=== PATIENT | male | born 1975 | race Caucasian/White ===

== ENCOUNTER 2019-08-04 10:23 | Emergency (ER) | payer OTHER ==
[2019-08-04] MEDS ORDERED: TORAdol 30 mg Injection IV ONE (11:10)
[2019-08-04] MEDS ORDERED: Sodium Chloride 0.9% 1000 ML 1,000 ML IV STA (11:10)
[2019-08-04] MEDS ORDERED: Sodium Chloride 0.9% 1000 ML 1,000 ML ONE (11:18)
[2019-08-04] MEDS ORDERED: TORAdol 30 mg Injection ONE (11:18)
--- NOTE | 2019-08-04 11:34 | ERPHSYRPT ---
- History of Present Illness Time Seen by Provider: 08/04/19 10:49 Historian: patient Exam Limitations: no limitations Patient Subjective Stated Complaint: Pt states that in May he hurt himself feeling something "tear or pop" in his left lower abdomen down to his testicles while moving furniture, pt went to a quick clinic and was told that it was a hernia and then had an MRI that did not see it, pain and bulging came again later and went back to the doc and was told it was a sports hernia and had an ultrasound and they did not see it, pt is now having bulging and pain again and has come to get some answers and relief, pt has a histury of an inguanal hernia on the left side when he was in high school Triage Nursing Assessment: Pt walked into the ER, vitals wnl, tender to palpatation to the LLQ, unable to feel any bulging, pulses normal, rates the pain as 6/10, last BM yesterday and last intake approx 1 hour ago, denies and N& V, doesn't appear to be in any distress Physician History: 44 years old male with history of left inguinal hernia repair long time ago presented in the ER with 3 months history of off and on left-sided abdominal pain after lifting heavy stuff and felt a popping sensation. He was seen at outpatient and had MRI and ultrasound done which are negative. Patient report he feels a bulge initially in the lower abdomen but now he is having pain and bulging sensation in the upper abdomen as well. Moderate intensity sharp in nature without any significant aggravating or relieving factors deviating to left testicle at times no difficulty urination or testicular/scrotal swelling. Patient is worried about getting abdominal wall hernias and wants an answer for his symptoms. Timing/Duration: week(s), intermittent, worse Activities at Onset: rest Quality: sharpness Abdominal Pain Onset Location: LUQ, LLQ, flank Severity of Pain-Max: moderate Severity of Pain-Current: moderate Modifying Factors: Improves With: nothing Associated Symptoms: denies symptoms Previous symptoms: no prior history Allergies/Adverse Reactions: codeine Allergy (Verified 08/04/19 10:48) cortisone [Cortisone] Allergy (Verified 08/04/19 10:48) Home Medications: Insulin Aspart [Novolog] 5 unit SQ TIDWM 08/04/19 [History] Insulin Glargine,Hum.rec.anlog [Rayne Shearer U-100] 30 unit SQ HS 08/04/19 [ History] Hx Tetanus, Diphtheria Vaccination/Date Given: Yes Hx Influenza Vaccination/Date Given: No Hx Pneumococcal Vaccination/Date Given: No Travel Risk - International Travel Have you traveled outside of the country in past 3 weeks: No - Coronavirus Screening Are you exhibiting any of the following symptoms?: No Close contact with a COVID-19 positive Pt in past 14-21 Days: No - Review of Systems Constitutional: No Symptoms Eyes: No Symptoms Ears, Nose, & Throat: No Symptoms Respiratory: No Symptoms Cardiac: No Symptoms Abdominal/Gastrointestinal: Abdominal Pain Genitourinary Symptoms: Testicle Pain Musculoskeletal: No Symptoms Skin: No Symptoms Neurological: No Symptoms Psychological: No Symptoms Endocrine: No Symptoms Hematologic/Lymphatic: No Symptoms Immunological/Allergic: No Symptoms - Past Medical History Pertinent Past Medical History: Yes Endocrine Medical History: Diabetes Type II GI Medical History: Hernia - Past Surgical History Past Surgical History: Yes Gastrointestinal: Hernia Repair Musculoskeletal: Orthopedic Surgery Other Surgical History: TONSILS REMOVED, back surgery L4-5 - Social History Smoking Status: Never smoker Exposure to second hand smoke: No Drug Use: none Patient Lives Alone: No - Nursing Vital Signs Nursing Vital Signs: Initial Vital Signs Temperature 98.1 F 08/04/19 10:36 Pulse Rate 96 H 08/04/19 10:36 Blood Pressure 132/81 08/04/19 10:36 O2 Sat by Pulse Oximetry 97 08/04/19 10:36 Pain Scale Pain Intensity 4 - Physical Exam General Appearance: no apparent distress, alert, anxiety Eye Exam: eyes nml inspection Ears, Nose, Throat Exam: normal ENT inspection, pharynx normal Neck Exam: normal inspection, supple, full range of motion Respiratory Exam: normal breath sounds, lungs clear Cardiovascular Exam: regular rate/rhythm, normal heart sounds, normal peripheral pulses Gastrointestinal/Abdomen Exam: soft, tenderness (Upper/flank/lower quadrant tenderness. No asymmetry of abdomen. No guarding. No pulsatile or palpable mass.) Male Genitalia Exam: normal genitalia Back Exam: normal inspection Extremity Exam: normal inspection Neurologic Exam: alert, oriented x 3, cooperative Skin Exam: normal color SpO2 Interpretation: normal SpO2: 97 O2 Delivery: Room Air Ordered Tests: Active Orders 24 hr Category Date Time Status IV Insertion STAT Care 08/04/19 11:10 Active NPO (ED) STAT Care 08/04/19 11:10 Active ABDOMEN AND PELVIS W CONTRAST [CT] Stat Exams 08/04/19 11:11 Completed CBC W DIFF Stat Lab 08/04/19 11:10 Completed CMP Stat Lab 08/04/19 11:10 Completed LIPASE Stat Lab 08/04/19 11:10 Completed UA W/RFX UR CULTURE Stat Lab 08/04/19 11:35 Completed Medication Summary Discontinued Medications Generic Name Dose Route Start Last Admin Trade Name Freq PRN Reason Stop Dose Admin Sodium Chloride 1,000 mls @ 999 mls/hr 08/04/19 11:10 08/04/19 12:30 Sodium Chloride 0.9% 1000 Ml IV 08/04/19 12:10 Infused .Q1H1M STA Infusion Sodium Chloride Confirm 08/04/19 11:18 Sodium Chloride 0.9% 1000 Ml Administered 08/04/19 11:19 Dose 1,000 mls @ ud .ROUTE .STK-MED ONE Ketorolac Tromethamine 30 mg 08/04/19 11:10 08/04/19 11:20 Toradol 30 Mg Injection IV 08/04/19 11:11 30 mg STAT ONE Administration Ketorolac Tromethamine Confirm 08/04/19 11:18 Toradol 30 Mg Injection Administered 08/04/19 11:19 Dose 30 mg .ROUTE .STK-MED ONE Lab/Rad Data: Laboratory Result Diagrams 08/04/19 11:10 08/04/19 11:10 Laboratory Results 08/04/19 08/04/19 08/04/19 Range/Units 11:35 11:10 11:10 WBC 5.5 (4.0-10.5) K/mm3 RBC 4.94 (4.1-5.6) M/mm3 Hgb 15.7 (12.5-18.0) gm/dl Hct 44.0 (42-50) % MCV 89.1 (78-100) fl MCH 31.8 (26-32) pg MCHC 35.7 (32-36) g/dl RDW 12.4 (11.5-14.0) % Plt Count 220 (150-450) K/mm3 MPV 11.1 H (7.5-11.0) fl Gran % 68.9 H (36.0-66.0) % Eos # (Auto) 0.04 (0-0.5) Absolute Lymphs (auto) 1.24 (1.0-4.6) Absolute Monos (auto) 0.39 (0.0-1.3) Lymphocytes % 22.6 L (24.0-44.0) % Monocytes % 7.1 (0.0-12.0) % Eosinophils % 0.7 (0.00-5.0) % Basophils % 0.7 (0.0-0.4) % Absolute Granulocytes 3.78 (1.4-6.9) Basophils # 0.04 (0-0.4) Sodium 138 (137-145) mmol/L Potassium 3.8 (3.5-5.1) mmol/L Chloride 101 (98-107) mmol/L Carbon Dioxide 25 (22-30) mmol/L Anion Gap 15.5 H (5-15) MEQ/L BUN 18 (9-20) mg/dL Creatinine 0.69 (0.66-1.25) mg/dL Estimated GFR > 60.0 ML/MIN Glucose 358 H (74-106) mg/dL Calcium 9.1 (8.4-10.2) mg/dL Total Bilirubin 0.60 (0.2-1.3) mg/dL AST 21 (17-59) U/L ALT 21 (0-50) U/L Alkaline Phosphatase 138 H (38-126) U/L Serum Total Protein 7.6 (6.3-8.2) g/dL Albumin 4.2 (3.5-5.0) g/dL Lipase 604 H (23-300) U/L Urine Color YELLOW (YELLOW) Urine Appearance CLEAR (CLEAR) Urine pH 5.0 (5-6) Ur Specific [place] 1.032 (1.005-1.025) Urine Protein NEGATIVE (Negative) Urine Ketones SMALL (NEGATIVE) Urine Blood NEGATIVE (0-5) Daniel/ul Urine Nitrite NEGATIVE (NEGATIVE) Urine Bilirubin NEGATIVE (NEGATIVE) Urine Urobilinogen NEGATIVE (0-1) mg/dL Ur Leukocyte Esterase NEGATIVE (NEGATIVE) Urine WBC (Auto) NONE (0-5) /HPF Urine RBC (Auto) NONE (0-2) /HPF U Epithel Cells (Auto) NONE (FEW) /HPF Urine Bacteria (Auto) NONE (NEGATIVE) /HPF Urine Mucus (Auto) SLIGHT (NEGATIVE) /HPF Urine Culture Reflexed NO (NO) Urine Glucose >=500 (NEGATIVE) mg/dL - Progress Progress: improved, re-examined Progress Note: 08/04/19 13:54 44 years old is evaluated for left-sided abdominal pain off and on for quite some time. Is given Toradol, on reevaluation pain is better. Patient is not in any distress. He has normal white count. Lipase and 600 but no signs of acute pancreatitis on the CT abdomen pelvis with contrast. CT otherwise is negative for any acute findings. I do not know the exact cause of his pain but have ruled out all the major emergencies. Recommended outpatient follow-up with primary care and may need endoscopy/colonoscopy. Because of her elevated lipase I have recommended clear liquids for next 24 to 48 hours. Discussed signs symptoms of worsening needing return to ER which she seemed understanding. Stable for discharge. Counseled pt/family regarding: lab results, diagnosis, need for follow-up, rad results - Departure Departure Disposition: Home Clinical Impression: Left sided abdominal pain, Elevated lipase Condition: Stable Critical Care Time: No Referrals: DOCTOR,NO FAMILY [Primary Care Provider] - MILAGROS MAURER MD [ACTIVE STAFF] - (1-2 days for re evaluation) Instructions: Acute Abdomen (Belly Pain) Additional Instructions: Take clear liquids for next 24 to 48 hours. Take Tylenol as needed. Follow-up with primary care for reevaluation. Return to ER for worsening.
[2019-08-04 11:46] LABS: Appearance CLEAR (CLEAR); Bilirubin NEGATIVE (NEGATIVE); Blood NEGATIVE Ery/ul (0-5); Glucose >=500 mg/dL (NEGATIVE); Ketones SMALL (NEGATIVE); Leukocyte Esterase NEGATIVE (NEGATIVE); Mucus SLIGHT /HPF (NEGATIVE); Nitrite NEGATIVE (NEGATIVE); Protein,Urine Dip NEGATIVE (Negative); Specific Gravity 1.032 (1.005-1.025); Urobilinogen NEGATIVE mg/dL (0-1)
[2019-08-04 11:57] LABS: Absolute Neutrophil Ct (ANC) 3.78 (1.4-6.9); BASOPHIL % 0.7 % (0.0-0.4); Basophil (Absolute #) 0.04 (0-0.4); Eosinophil % 0.7 % (0.00-5.0); Eosinophil (Absolute #) 0.04 (0-0.5); Hemoglobin 15.7 gm/dl (12.5-18.0); Lymphocyte (Absolute #) 1.24 (1.0-4.6); Lymphocytes % 22.6 % (24.0-44.0); Mean Cell Volume 89.1 fl (78-100); Mean Corpuscular Hemoglobin 31.8 pg (26-32); Mean Corpuscular Hgb Concent. 35.7 g/dl (32-36); Mean Platelet Volume 11.1 fl (7.5-11.0); Monocyte (Absolute #) 0.39 (0.0-1.3); Monocytes % 7.1 % (0.0-12.0); Neutrophil % 68.9 % (36.0-66.0); Platelet Count 220 K/mm3 (150-450); Red Blood Count 4.94 M/mm3 (4.1-5.6); Red Cell Distribution Width 12.4 % (11.5-14.0); White Blood Count 5.5 K/mm3 (4.0-10.5)
[2019-08-04 12:06] LABS: ALBUMIN 4.2 g/dL (3.5-5.0); ALKALINE PHOSPHATASE 138 U/L (38-126); ANION GAP 15.5 MEQ/L (5-15); BLOOD UREA NITROGEN 18 mg/dL (9-20); CHLORIDE 101 mmol/L (98-107); Calcium 9.1 mg/dL (8.4-10.2); Carbon Dioxide 25 mmol/L (22-30); Creatinine 1 0.69 mg/dL (0.66-1.25); Glucose 358 mg/dL (74-106); Potassium 3.8 mmol/L (3.5-5.1); SGOT/AST 21 U/L (17-59); SGPT/ALT 21 U/L (0-50); SODIUM 138 mmol/L (137-145); Total Protein 7.6 g/dL (6.3-8.2)
[2019-08-04 12:07] LABS: LIPASE 604 U/L (23-300)
--- NOTE | 2019-08-04 13:06 | XRAY ---
Exam: CT of the abdomen and pelvis with IV contrast from 08/04/2019. Total DLP: 539.20 mGy-cm Comparison: None. Indication: 44-year-old male complains of left-sided pain, rule out hernia. Also, information sheet states "left testicle swelling". Technique: Post IV contrast axial images were obtained through the abdomen and pelvis during automated injection of 80 ML's of Isovue 370 contrast material. No oral contrast was given. Reconstructed coronal and sagittal images were created and reviewed. Findings: The lung bases appear clear. The heart size is normal. The liver and spleen are of normal size and reveal no mass. No intrahepatic or extrahepatic biliary duct distention is seen within the right upper quadrant. The gallbladder is partially distended, and no dense calcifications are seen within it. The pancreas and adrenal glands appear unremarkable. The right kidney is relatively small and reveals asymmetric cortical thickening and scarring as well as a punctate nonobstructing stone within its lower pole. The left kidney measures 13.1 cm in length, whereas the right kidney measures about 8.4 cm in length. The kidneys both function on delay images. The ureters appear of unremarkable diameter without ureterolith. The urinary bladder is distended and appears unremarkable. There is no evidence of abdominal aortic aneurysm or abnormal retroperitoneal lymphadenopathy. No free intraperitoneal air is seen. The anterior abdominal wall appears intact. The appendix is seen within the right lower quadrant and appears unremarkable. A mild amount of scattered stool is seen throughout the colon. Mild muscular hypertrophy is seen within the sigmoid colon. No significant colonic diverticulosis or acute diverticulitis is seen. No bowel thickening is evident. The pelvis reveals no soft tissue mass or enlarged pelvic lymph nodes. No free intraperitoneal fluid is seen. The seminal vesicles appear unremarkable. Minimal prostate gland calcification is seen. The region of the inguinal canals appears unremarkable bilaterally. I see no significant asymmetry within either hemiscrotum on the axial or coronal images. Correlate clinically regarding reported "left testicle swelling". The skeleton reveals a transitional vertebra at the lumbosacral junction. Some vertebral endplate spurring is seen within the lower thoracic spine, and to lesser extent, within the mid and lower lumbar spine. No fracture or aggressive bone lesion is seen. Impression: 1. I see no acute intra-abdominal or pelvic process. 2. Incidentally, the right kidney is atrophic and reveals both cortical thinning and cortical scarring as well as a small nonobstructing stone within its inferior pole. Presumably, these findings are long-standing. I see no evidence of acute obstructive uropathy. 3. Normal appendix. 4. No significant abnormalities are detected within either inguinal canal or hemiscrotum. Correlate clinically regarding reported "left testicle swelling".
[2019-08-04 14:06] VITALS: BP 117/76; PULSE 68; O2SAT 98
== END 2019-08-04 14:15 | disposition home or self-care (01) ==
LOC: ED 10:23
DX: R10.32 Left lower quadrant pain (principal); R74.8 Abnormal levels of other serum enzymes; N50.819 Testicular pain, unspecified; E11.9 Type 2 diabetes mellitus without complications
CPT/HCPCS: 36000; 36415; 74177; 80053; 81001; 83690; 85025; 96360; 96374; 99284; J1885

== ENCOUNTER 2023-05-03 19:59 | Observation (INO) | payer MEDICAID, OTHER ==
--- NOTE | 2023-05-03 20:21 | ERPHSYRPT ---
- History of Present Illness Time Seen by Provider: 05/03/23 20:10 Historian: patient Exam Limitations: no limitations Physician History: Pt states he has had nausea for the past 2 days; vomiting x30 coffee ground emesis, dull/burning mid anterior chest pain, upper abdominal pain, fast breathing and sore throat today. LBM was today small without blood. Allergies/Adverse Reactions: codeine Allergy (Unknown, Verified 05/03/23 20:02) cortisone [Cortisone] Allergy (Unknown, Verified 05/03/23 20:02) Home Medications: Insulin Aspart [Novolog] 5 unit SQ TIDWM 08/04/19 [History] Insulin Degludec [Tresiba Flextouch U-100] 30 units SQ HS 05/03/23 [History] Hx Tetanus, Diphtheria Vaccination/Date Given: Yes Hx Influenza Vaccination/Date Given: No Hx Pneumococcal Vaccination/Date Given: No - Review of Systems Constitutional: No Fever Ears, Nose, & Throat: No Ear Pain, No Throat Pain Respiratory: Dyspnea, No Cough Cardiac: Chest Pain Abdominal/Gastrointestinal: Abdominal Pain, Nausea, Vomiting, No Diarrhea Genitourinary Symptoms: No Dysuria Skin: No Rash Neurological: No Headache - Past Medical History Pertinent Past Medical History: Yes Endocrine Medical History: Diabetes Type II GI Medical History: Hernia - Past Surgical History Past Surgical History: Yes Gastrointestinal: Hernia Repair Musculoskeletal: Orthopedic Surgery Other Surgical History: TONSILS REMOVED, back surgery L4-5 - Social History Smoking Status: Never smoker Exposure to second hand smoke: No Drug Use: none Patient Lives Alone: No - Nursing Vital Signs Nursing Vital Signs: Initial Vital Signs Temperature 98.5 F 05/03/23 20:03 Pulse Rate 114 H 05/03/23 20:03 Respiratory Rate 22 05/03/23 20:03 Blood Pressure 135/99 05/03/23 20:03 O2 Sat by Pulse Oximetry 100 05/03/23 20:03 Pain Scale Pain Intensity 7 - Physical Exam General Appearance: alert, anxiety Eye Exam: PERRL/EOMI Ears, Nose, Throat Exam: TMs normal, pharynx normal Neck Exam: normal inspection Respiratory Exam: normal breath sounds Cardiovascular Exam: normal heart sounds Gastrointestinal/Abdomen Exam: soft, normal bowel sounds Back Exam: normal inspection Extremity Exam: No pedal edema Neurologic Exam: alert, cooperative Skin Exam: warm, dry - Course EKG Interpreted by Me: RATE (111), Sinus Tach, NORMAL AXIS, Other (QTc = 484) - CT Exams Chest CT Interpretation: Tele-radiologist Report (Negative study for PE. Diffuse wall thickening of the esophagus, from the proximal part to the esophagogastric junction. See rest of report.) Abdomen/Pelvis CT Interpretation: Tele-radiologist Report (Diffusely increased wall thickening of the distal esophagus. Right atrophic kidney with a small nonobstructing stone. Mildly dilated gallbladder without radiopaque stones. Further evaluation with US is recommended.) Ordered Tests: Active Orders 24 hr Category Date Time Status EKG-ER Only STAT Care 05/03/23 20:18 Active IV Insertion STAT Care 05/03/23 20:18 Active ABDOMEN AND PELVIS W CONTRAST [CT] Stat Exams 05/03/23 20:19 Completed CHEST WITH CONTRAST [CT] Stat Exams 05/03/23 20:21 Completed AMYLASE Stat Lab 05/03/23 20:22 Completed CBC W DIFF Stat Lab 05/03/23 20:22 Completed CMP Stat Lab 05/03/23 20:22 Completed LIPASE Stat Lab 05/03/23 20:22 Completed OB-FECAL SCREEN Stat Lab 05/03/23 Ordered PROTIME WITH INR Stat Lab 05/03/23 20:22 Completed PTT Stat Lab 05/03/23 20:22 Completed TROPONIN Q4H Lab 05/03/23 20:22 Completed TROPONIN Q4H Lab 05/04/23 00:30 Ordered TROPONIN Q4H Lab 05/04/23 05:30 Ordered UA W/RFX UR CULTURE Stat Lab 05/03/23 21:23 Completed Medication Summary Discontinued Medications Generic Name Dose Route Start Last Admin Trade Name Robin PRN Reason Stop Dose Admin Sodium Chloride 1,000 mls @ 999 mls/hr 05/03/23 20:18 05/03/23 22:11 Sodium Chloride 0.9% 1000 Ml IV 05/03/23 21:18 Infused .Q1H1M STA Infusion Sodium Chloride Confirm 05/03/23 20:32 Sodium Chloride 0.9% 1000 Ml Administered 05/03/23 20:33 Dose 1,000 mls @ ud .ROUTE .STK-MED ONE Ondansetron HCl 4 mg 05/03/23 20:18 05/03/23 20:34 Ondansetron Hcl 4 Mg/2 Ml Vial IV 05/03/23 20:19 4 mg STAT ONE Administration Ondansetron HCl Confirm 05/03/23 20:32 Ondansetron Hcl 4 Mg/2 Ml Vial Administered 05/03/23 20:33 Dose 4 mg .ROUTE .STK-MED ONE Pantoprazole Sodium 40 mg 05/03/23 20:18 05/03/23 20:34 Pantoprazole 40 Mg Vial IV 05/03/23 20:19 40 mg STAT ONE Administration Pantoprazole Sodium Confirm 05/03/23 20:32 Pantoprazole 40 Mg Vial Administered 05/03/23 20:33 Dose 40 mg IV .STK-MED ONE Lab/Rad Data: Laboratory Result Diagrams 05/03/23 20:22 05/03/23 20:22 Laboratory Results 05/03/23 05/03/23 05/03/23 Range/Units 21:23 20:22 20:22 WBC (4.0-10.5) x10^3/uL RBC (4.1-5.6) x10^6/uL Hgb (12.5-18.0) g/dL Hct (42-50) % MCV (78-100) fL MCH (26-32) pg MCHC (32-36) g/dL RDW (11.5-14.0) % Plt Count (150-450) x10^3/uL MPV (7.5-11.0) fL Gran % (36.0-66.0) % Immature Gran % (Auto) (0.00-0.4) % Nucleat RBC Rel Count (0.00-0.1) % Eos # (Auto) (0-0.5) x10^3/uL Immature Gran # (Auto) (0.00-0.03) x10^3u/L Absolute Lymphs (auto) (1.0-4.6) x10^3/uL Absolute Monos (auto) (0.0-1.3) x10^3/uL Absolute Nucleated RBC (0.00-0.01) x10^3u/L Lymphocytes % (24.0-44.0) % Monocytes % (0.0-12.0) % Eosinophils % (0.00-5.0) % Basophils % (0.0-0.4) % Absolute Granulocytes (1.4-6.9) x10^3/uL Basophils # (0-0.4) x10^3/uL PT 11.3 (9.4-12.5) SECONDS INR 1.04 (0.8-3.0) APTT 23.4 L (25.1-36.5) SECONDS Sodium (135-145) mmol/L Potassium (3.5-5.1) mmol/L Chloride (98-107) mmol/L Carbon Dioxide (22-30) mmol/L Anion Gap (5-15) MEQ/L BUN (9-20) mg/dL Creatinine (0.66-1.25) mg/dL Estimated GFR ML/MIN Glucose (74-106) mg/dL Calcium (8.4-10.2) mg/dL Total Bilirubin (0.2-1.3) mg/dL AST (17-59) U/L ALT (0-50) U/L Alkaline Phosphatase (38-126) U/L Troponin I < 0.012 (0.000-0.034) ng/mL Serum Total Protein (6.3-8.2) g/dL Albumin (3.5-5.0) g/dL Amylase (30-110) U/L Lipase (23-300) U/L Urine Color Yellow (Yellow) Urine Appearance Clear (Clear) Urine pH 6.0 (4.6-8.0) Ur Specific [place] 1.025 (1.005-1.030) Urine Protein 30 (Negative) Urine Glucose (UA) 250 A (Negative) mg/dL Urine Ketones 80 A (Negative) Urine Blood Negative (Negative) Urine Nitrite Negative (Negative) Urine Bilirubin Negative (Negative) Urine Urobilinogen 1.0 A (0.2) mg/dL Ur Leukocyte Esterase Negative (Negative) U Hyaline Cast (Auto) 3-5 A (0-2) /LPF Urine Microscopic RBC 0-2 (0-5) /HPF Urine Microscopic WBC 0-2 (0-5) /HPF Ur Epithelial Cells None Seen (None Seen) /HPF Urine Bacteria None Seen (None Seen) /HPF Urine Culture Reflexed NO (NO) 05/03/23 05/03/23 Range/Units 20:22 20:22 WBC 11.0 H (4.0-10.5) x10^3/uL RBC 4.99 (4.1-5.6) x10^6/uL Hgb 15.8 (12.5-18.0) g/dL Hct 45.7 (42-50) % MCV 91.6 (78-100) fL MCH 31.7 (26-32) pg MCHC 34.6 (32-36) g/dL RDW 11.7 (11.5-14.0) % Plt Count 245 (150-450) x10^3/uL MPV 10.7 (7.5-11.0) fL Gran % 77.1 H (36.0-66.0) % Immature Gran % (Auto) 0.4 (0.00-0.4) % Nucleat RBC Rel Count 0.0 (0.00-0.1) % Eos # (Auto) 0.03 (0-0.5) x10^3/uL Immature Gran # (Auto) 0.04 H (0.00-0.03) x10^3u/L Absolute Lymphs (auto) 1.40 (1.0-4.6) x10^3/uL Absolute Monos (auto) 1.00 (0.0-1.3) x10^3/uL Absolute Nucleated RBC 0.00 (0.00-0.01) x10^3u/L Lymphocytes % 12.8 L (24.0-44.0) % Monocytes % 9.1 (0.0-12.0) % Eosinophils % 0.3 (0.00-5.0) % Basophils % 0.3 (0.0-0.4) % Absolute Granulocytes 8.48 H (1.4-6.9) x10^3/uL Basophils # 0.03 (0-0.4) x10^3/uL PT (9.4-12.5) SECONDS INR (0.8-3.0) APTT (25.1-36.5) SECONDS Sodium 139 (135-145) mmol/L Potassium 3.9 (3.5-5.1) mmol/L Chloride 98 (98-107) mmol/L Carbon Dioxide 27 (22-30) mmol/L Anion Gap 17.7 H (5-15) MEQ/L BUN 21 H (9-20) mg/dL Creatinine 1.17 (0.66-1.25) mg/dL Estimated GFR 76.9 ML/MIN Glucose 196 H (74-106) mg/dL Calcium 10.2 (8.4-10.2) mg/dL Total Bilirubin 0.90 (0.2-1.3) mg/dL AST 21 (17-59) U/L ALT 28 (0-50) U/L Alkaline Phosphatase 93 (38-126) U/L Troponin I (0.000-0.034) ng/mL Serum Total Protein 8.2 (6.3-8.2) g/dL Albumin 4.6 (3.5-5.0) g/dL Amylase 58 (30-110) U/L Lipase 46 (23-300) U/L Urine Color (Yellow) Urine Appearance (Clear) Urine pH (4.6-8.0) Ur Specific [place] (1.005-1.030) Urine Protein (Negative) Urine Glucose (UA) (Negative) mg/dL Urine Ketones (Negative) Urine Blood (Negative) Urine Nitrite (Negative) Urine Bilirubin (Negative) Urine Urobilinogen (0.2) mg/dL Ur Leukocyte Esterase (Negative) U Hyaline Cast (Auto) (0-2) /LPF Urine Microscopic RBC (0-5) /HPF Urine Microscopic WBC (0-5) /HPF Ur Epithelial Cells (None Seen) /HPF Urine Bacteria (None Seen) /HPF Urine Culture Reflexed (NO) - Progress Progress: unchanged Discussed with : Other (Spoke with & discussed case with Dr. Vidales([id number]) - obs) Counseled pt/family regarding: lab results, diagnosis, rad results Medical Desision Making - Diagnostic Testing Diagnostic test were ordered, analyzed, and reviewed by me: Yes Radiological Interpretation: Teleradiologist Report - Departure Departure Disposition: Observation Clinical Impression: Chest pain, Abdominal pain, Dyspnea, Vomiting, Dilated gallbladder Condition: Stable Critical Care Time: No Referrals: DOCTOR,NO FAMILY [NON-STAFF PHY W/O PRIVILEGES] - Follow up/PCP as directed
[2023-05-03] MEDS ORDERED: Sodium Chloride 0.9% 1000 ML 1,000 ML ONE (20:32)
[2023-05-03] MEDS ORDERED: PROTONIX 40 MG IV IV ONE (20:32)
[2023-05-03] MEDS ORDERED: Zofran 4 MG/2 ML VIAL ONE (20:32)
[2023-05-03 20:34] LABS: Absolute Neutrophil Ct (ANC) 8.48 x10^3/uL (1.4-6.9); BASOPHIL % 0.3 % (0.0-0.4); Basophil (Absolute #) 0.03 x10^3/uL (0-0.4); Eosinophil % 0.3 % (0.00-5.0); Eosinophil (Absolute #) 0.03 x10^3/uL (0-0.5); Hematocrit 45.7 % (42-50); Hemoglobin 15.8 g/dL (12.5-18.0); IMMATURE GRAN # 0.04 x10^3u/L (0.00-0.03); IMMATURE GRAN % 0.4 % (0.00-0.4); Lymphocytes % 12.8 % (24.0-44.0); Mean Cell Volume 91.6 fL (78-100); Mean Corpuscular Hemoglobin 31.7 pg (26-32); Mean Corpuscular Hgb Concent. 34.6 g/dL (32-36); Mean Platelet Volume 10.7 fL (7.5-11.0); Monocytes % 9.1 % (0.0-12.0); Neutrophil % 77.1 % (36.0-66.0); Platelet Count 245 x10^3/uL (150-450); Red Blood Count 4.99 x10^6/uL (4.1-5.6); Red Cell Distribution Width 11.7 % (11.5-14.0)
[2023-05-03] MEDS: Zofran 4 MG/2 ML VIAL IV ONE (20:34)
[2023-05-03] MEDS: Sodium Chloride 0.9% 1000 ML 1,000 ML IV STA (20:34)
[2023-05-03] MEDS: PROTONIX 40 MG IV IV ONE (20:34)
[2023-05-03 20:47] LABS: ALBUMIN 4.6 g/dL (3.5-5.0); ANION GAP 17.7 MEQ/L (5-15); BILIRUBIN,TOTAL 0.9 mg/dL (0.2-1.3); Calcium 10.2 mg/dL (8.4-10.2); Creatinine 1 1.17 mg/dL (0.66-1.25); EST GLOMERULAR FILTRATION RATE 76.9 ML/MIN; Potassium 3.9 mmol/L (3.5-5.1); Total Protein 8.2 g/dL (6.3-8.2)
[2023-05-03 20:56] LABS: INR 1.04 (0.8-3.0); PROTIME 11.3 SECONDS (9.4-12.5); PTT 23.4 SECONDS (25.1-36.5)
[2023-05-03 22:04] LABS: ADD URINE CULTURE? NO (NO); Appearance Clear (Clear); Bacteria None Seen /HPF (None Seen); Bilirubin Negative (Negative); Blood Negative (Negative); Epithelial Cells None Seen /HPF (None Seen); Glucose, Urine 250 mg/dL (Negative); Ketones 80 (Negative); Leukocyte Esterase Negative (Negative); Nitrite Negative (Negative); Protein,Urine Dip 30 (Negative); RBC 0-2 /HPF (0-5); Specific Gravity 1.025 (1.005-1.030); WBC 0-2 /HPF (0-5)
--- NOTE | 2023-05-03 22:15 | XRAY ---
CLINICAL HISTORY: hematemesis TECHNIQUE: CT scan of the abdomen and pelvis was performed with IV contrast, Coronal and sagittal reconstructive images were also obtained. One of the following dose reduction techniques were utilized for this exam: Automated exposure control, adjustment of the mA and/or kV according to patient size, use of iterative reconstruction COMPARISON: Prior CT abdomen dated 08/04/2019 FINDINGS: Lung bases reveal; diffusely increased wall thickening of the distal esophagus Atrophic right kidney is seen measuring approximately 8 cm CC. There is a 4 mm nonobstructing stone within the lower pole of the right kidney. The left kidney is unremarkable. Lung bases are unremarkable. The liver is normal in size without focal parenchymal abnormality. The intrahepatic biliary radicals and the bile ducts are normal. The gallbladder is mildly dilated, measuring 10 x 4 x 3.5 cm. No pericholecystic fluid collection or radio-dense calculi in the gall bladder. The spleen, pancreas, adrenal glands are unremarkable. The ascending colon, the transverse colon, the descending colon, visualized small bowel loops are unremarkable. There is no evidence of significant enlargement of the mesenteric or retroperitoneal lymph nodes. The osseous structures in the lower rib cage and lumbar spine show no abnormality. The Appendix is unremarkable. Pelvis: The urinary bladder is unremarkable. The rectosigmoid colon is unremarkable. The prostate is unremarkable The pelvic vasculature is unremarkable. No evidence of pelvic lymphadenopathy. No definite bony abnormalities could be depicted. IMPRESSION: 1. Diffusely increased wall thickening of the distal esophagus, For further workup and clinical correlation. 2. Right atrophic kidney with a small nonobstructing stone. 3. Mildly dilated gallbladder, without radiopaque stones. Further evaluation with US is recommended. Electronically Signed by: Hellen Venegas MD. (05/03/2023 22:11:50 EST)
--- NOTE | 2023-05-03 22:23 | XRAY ---
CLINICAL HISTORY: pain/SOA TECHNIQUE: Contiguous axial CT images of the chest were acquired with the administration of intravenous contrast. Coronal and sagittal reconstructions were obtained. One of the following dose reduction techniques were utilized for this exam: Automated exposure control, adjustment of the mA and/or kV according to patient size, use of iterative reconstruction COMPARISON: None FINDINGS: No evidence of central or segmental pulmonary embolism is seen. Normal pulmonary arterial diameter on CT There is no evidence for an aneurysm or dissection of the thoracic aorta. There is a subpleural calcified nodule within the left apical posterior segment measuring 9 mm. The scanned pulmonary parenchyma shows no definite consolidative lesions. No free or encysted pleural effusion. Heart size is normal, and there is no pericardial effusion. No pathologically enlarged mediastinal, hilar or axillary lymph node identified. There is no definite mass lesion in the chest wall. A Scanned upper abdomen shows diffuse wall thickening of the esophagus is noted measuring up to 1.4 cm, from the proximal part to the esophagogastric junction. Please, refer to CT abdomen for detail findings. IMPRESSION: 1. Negative study for pulmonary embolism. 2. Diffuse wall thickening of the esophagus, from the proximal part to the esophagogastric junction, in keeping with inflammatory?infectious process of the esophagus, for clinical correlation. 3. There is a subpleural calcified nodule within the left apical posterior segment representing calcified granuloma. Electronically Signed by: Hellen Venegas MD. (05/03/2023 22:20:12 EST)
[2023-05-03] MEDS ORDERED: TYLENOL 325 MG PO PRN (23:50)
[2023-05-03] MEDS ORDERED: HUMALOG SQ PRN (23:50)
[2023-05-03] MEDS ORDERED: Zofran 4 MG/2 ML VIAL IV PRN (23:52)
--- NOTE | 2023-05-04 00:02 | PCM.HP ---
History of Present Illness - Chief Complaint Chief Complaint: intractable nausea and vomiting History of Present Illness: is a 48 year old male with a hx of DMII on insulin only at home, came in with c/o nausea, vomiting x 2 days. Had vomited 30 + times since then. Reports coffee ground emesis, but no bloody or black stools. Has generalized abdominal pain, anterior chest pain, and sore throat from all the vomiting. Denies diarrhea. No fever, chills, dysuria, hematuria, flank pain. CT abd shows dilated gallbladder but no SBO, pancreatitis, cholecystitis. Did show esophageal edema - Review of Systems Constitutional: No Symptoms Eyes: No Symptoms Ears, Nose, & Throat: No Symptoms Respiratory: No Symptoms Cardiac: Chest Pain Abdominal/Gastrointestinal: Abdominal Pain, Nausea, Vomiting Genitourinary Symptoms: No Symptoms Musculoskeletal: No Symptoms Skin: No Symptoms Neurological: No Symptoms Psychological: No Symptoms Endocrine: No Symptoms Hematologic/Lymphatic: No Symptoms Immunological/Allergic: No Symptoms Medications & Allergies Home Medications: Home Medication List Insulin Aspart [Novolog] 5 unit SQ TIDWM 08/04/19 [History Confirmed 05/03/23] Insulin Degludec [Tresiba Flextouch U-100] 30 units SQ HS 05/03/23 [History Confirmed 05/03/23] Allergies/Adverse Reactions: Allergies Allergy/AdvReac Type Severity Reaction Status Date / Time codeine Allergy Unknown Verified 05/03/23 20:02 cortisone [Cortisone] Allergy Unknown Verified 05/03/23 20:02 - Past Medical History Past Medical History: Yes Neurological History: No Pertinent History ENT History: No Pertinent History Cardiac History: No Pertinent History Respiratory History: No Pertinent History Endocrine Medical History: Diabetes Type II Musculoskelatal History: No Pertinent History GI Medical History: Hernia History: No Pertinent History Pyscho-Social History: No Pertinent History Male Reproductive Disorders: No Pertinent History - Past Surgical History Past Surgical History: Yes Neuro Surgical History: No Pertinent History Cardiac History: No Pertinent History Respiratory Surgery: No Pertinent History GI Surgical History: Hernia Repair Genitourinary Surgical Hx: No Pertinent History Musculskeletal Surgical Hx: Orthopedic Surgery Male Surgical History: No Pertinent History Other Surgical History: TONSILS REMOVED, back surgery L4-5 Significant Family History: no pertinent family hx - Social History Smoking Status: Never smoker Exposure to second hand smoke: No Alcohol: Rarely Drug Use: none - Physical Exam Vital Signs: Vital Signs - 24 hr Temp Pulse Resp BP BP Pulse Ox 05/03/23 23:00 104 H 13 130/85 99 05/03/23 22:30 112 H 18 129/89 98 05/03/23 22:00 103 H 17 138/99 99 05/03/23 21:54 105 H 21 141/84 99 05/03/23 21:50 102 H 20 99 05/03/23 21:40 104 H 25 H 99 05/03/23 21:34 105 H 17 99 05/03/23 21:00 100 H 18 150/90 100 05/03/23 20:30 107 H 20 135/92 100 05/03/23 20:04 103 H 10 L 135/99 97 05/03/23 20:03 98.5 F 114 H 22 135/99 100 General Appearance: mild distress, alert, anxiety Neurologic Exam: alert, oriented x 3, cooperative Eye Exam: PERRL/EOMI, eyes nml inspection Ears, Nose, Throat Exam: normal ENT inspection, dry mucous membranes Neck Exam: normal inspection, supple, full range of motion Respiratory Exam: normal breath sounds, lungs clear, airway intact Gastrointestinal/Abdomen Exam: soft, normal bowel sounds, tenderness Rectal Exam: deferred Back Exam: normal inspection Extremity Exam: normal inspection, normal range of motion Skin Exam: normal color, dry Results - Labs Lab/Micro Results: Lab Results-Last 24 Hours 05/03/23 05/03/23 05/03/23 Range/Units 20:22 20:22 20:22 WBC 11.0 H (4.0-10.5) x10^3/uL RBC 4.99 (4.1-5.6) x10^6/uL Hgb 15.8 (12.5-18.0) g/dL Hct 45.7 (42-50) % MCV 91.6 (78-100) fL MCH 31.7 (26-32) pg MCHC 34.6 (32-36) g/dL RDW 11.7 (11.5-14.0) % Plt Count 245 (150-450) x10^3/uL MPV 10.7 (7.5-11.0) fL Gran % 77.1 H (36.0-66.0) % Immature Gran % (Auto) 0.4 (0.00-0.4) % Nucleat RBC Rel Count 0.0 (0.00-0.1) % Eos # (Auto) 0.03 (0-0.5) x10^3/uL Immature Gran # (Auto) 0.04 H (0.00-0.03) x10^3u/L Absolute Lymphs (auto) 1.40 (1.0-4.6) x10^3/uL Absolute Monos (auto) 1.00 (0.0-1.3) x10^3/uL Absolute Nucleated RBC 0.00 (0.00-0.01) x10^3u/L Lymphocytes % 12.8 L (24.0-44.0) % Monocytes % 9.1 (0.0-12.0) % Eosinophils % 0.3 (0.00-5.0) % Basophils % 0.3 (0.0-0.4) % Absolute Granulocytes 8.48 H (1.4-6.9) x10^3/uL Basophils # 0.03 (0-0.4) x10^3/uL PT (9.4-12.5) SECONDS INR (0.8-3.0) APTT (25.1-36.5) SECONDS Sodium 139 (135-145) mmol/L Potassium 3.9 (3.5-5.1) mmol/L Chloride 98 (98-107) mmol/L Carbon Dioxide 27 (22-30) mmol/L Anion Gap 17.7 H (5-15) MEQ/L BUN 21 H (9-20) mg/dL Creatinine 1.17 (0.66-1.25) mg/dL Estimated GFR 76.9 ML/MIN Glucose 196 H (74-106) mg/dL Calcium 10.2 (8.4-10.2) mg/dL Total Bilirubin 0.90 (0.2-1.3) mg/dL AST 21 (17-59) U/L ALT 28 (0-50) U/L Alkaline Phosphatase 93 (38-126) U/L Troponin I < 0.012 (0.000-0.034) ng/mL Serum Total Protein 8.2 (6.3-8.2) g/dL Albumin 4.6 (3.5-5.0) g/dL Amylase 58 (30-110) U/L Lipase 46 (23-300) U/L Urine Color (Yellow) Urine Appearance (Clear) Urine pH (4.6-8.0) Ur Specific [place] (1.005-1.030) Urine Protein (Negative) Urine Glucose (UA) (Negative) mg/dL Urine Ketones (Negative) Urine Blood (Negative) Urine Nitrite (Negative) Urine Bilirubin (Negative) Urine Urobilinogen (0.2) mg/dL Ur Leukocyte Esterase (Negative) U Hyaline Cast (Auto) (0-2) /LPF Urine Microscopic RBC (0-5) /HPF Urine Microscopic WBC (0-5) /HPF Ur Epithelial Cells (None Seen) /HPF Urine Bacteria (None Seen) /HPF Urine Culture Reflexed (NO) 05/03/23 05/03/23 Range/Units 20:22 21:23 WBC (4.0-10.5) x10^3/uL RBC (4.1-5.6) x10^6/uL Hgb (12.5-18.0) g/dL Hct (42-50) % MCV (78-100) fL MCH (26-32) pg MCHC (32-36) g/dL RDW (11.5-14.0) % Plt Count (150-450) x10^3/uL MPV (7.5-11.0) fL Gran % (36.0-66.0) % Immature Gran % (Auto) (0.00-0.4) % Nucleat RBC Rel Count (0.00-0.1) % Eos # (Auto) (0-0.5) x10^3/uL Immature Gran # (Auto) (0.00-0.03) x10^3u/L Absolute Lymphs (auto) (1.0-4.6) x10^3/uL Absolute Monos (auto) (0.0-1.3) x10^3/uL Absolute Nucleated RBC (0.00-0.01) x10^3u/L Lymphocytes % (24.0-44.0) % Monocytes % (0.0-12.0) % Eosinophils % (0.00-5.0) % Basophils % (0.0-0.4) % Absolute Granulocytes (1.4-6.9) x10^3/uL Basophils # (0-0.4) x10^3/uL PT 11.3 (9.4-12.5) SECONDS INR 1.04 (0.8-3.0) APTT 23.4 L (25.1-36.5) SECONDS Sodium (135-145) mmol/L Potassium (3.5-5.1) mmol/L Chloride (98-107) mmol/L Carbon Dioxide (22-30) mmol/L Anion Gap (5-15) MEQ/L BUN (9-20) mg/dL Creatinine (0.66-1.25) mg/dL Estimated GFR ML/MIN Glucose (74-106) mg/dL Calcium (8.4-10.2) mg/dL Total Bilirubin (0.2-1.3) mg/dL AST (17-59) U/L ALT (0-50) U/L Alkaline Phosphatase (38-126) U/L Troponin I (0.000-0.034) ng/mL Serum Total Protein (6.3-8.2) g/dL Albumin (3.5-5.0) g/dL Amylase (30-110) U/L Lipase (23-300) U/L Urine Color Yellow (Yellow) Urine Appearance Clear (Clear) Urine pH 6.0 (4.6-8.0) Ur Specific [place] 1.025 (1.005-1.030) Urine Protein 30 (Negative) Urine Glucose (UA) 250 A (Negative) mg/dL Urine Ketones 80 A (Negative) Urine Blood Negative (Negative) Urine Nitrite Negative (Negative) Urine Bilirubin Negative (Negative) Urine Urobilinogen 1.0 A (0.2) mg/dL Ur Leukocyte Esterase Negative (Negative) U Hyaline Cast (Auto) 3-5 A (0-2) /LPF Urine Microscopic RBC 0-2 (0-5) /HPF Urine Microscopic WBC 0-2 (0-5) /HPF Ur Epithelial Cells None Seen (None Seen) /HPF Urine Bacteria None Seen (None Seen) /HPF Urine Culture Reflexed NO (NO) - Radiology Impressions Radiology Exams & Impressions: Radiology Procedures Category Date Time Status ABDOMEN AND PELVIS W CONTRAST [CT] Stat Exams 05/03/23 20:19 Completed CHEST WITH CONTRAST [CT] Stat Exams 05/03/23 20:21 Completed Assessment/Plan (1) Intractable nausea and vomiting Current Visit: Yes Status: Acute Assessment & Plan: Due to gallbladder pathology likely. Will get a gallbladder US. Lipase, amylase, LFTs all normal. UA + glucose, but otherwise normal. No SBO on CT. trops negative x 1 so far. Chest pain likely from repeated vomiting. CT did show esophageal edeam and again, it is likely from the repeated vomiting. NPO. IVF. Prn ofran Code(s): R11.2 - NAUSEA WITH VOMITING, UNSPECIFIED (2) Dilated gallbladder Current Visit: Yes Status: Acute Assessment & Plan: Will get an US, then go from there Code(s): K82.8 - OTHER SPECIFIED DISEASES OF GALLBLADDER (3) Abdominal pain Current Visit: Yes Status: Acute Assessment & Plan: Due to some sort of gallbladder pathology given the negative work-up for other causes and CT showing gallbladder dilatation. Prn pain med Code(s): R10.9 - UNSPECIFIED ABDOMINAL PAIN (4) Diabetes mellitus Current Visit: Yes Status: Acute Assessment & Plan: NPO due to n/v. SSI, accucheck. Check A1C Code(s): E11.9 - TYPE 2 DIABETES MELLITUS WITHOUT COMPLICATIONS Telemedicine Encounter - Telemedicine Encounter Telemedicine Encounter: The entirety of this encounter was performed via Telemedicine" Pt gave me verbal consent to have this telemedicine visit
[2023-05-04] MEDS ORDERED: Zofran 4 MG/2 ML VIAL IV PRN (00:20)
[2023-05-04] MEDS: Lactated Ringers 1,000 ML IV SCH (00:46)
[2023-05-04] MEDS: MORPHINE SULFATE 4 MG INJ IV PRN (01:03)
[2023-05-04] MEDS: PROTONIX 40 MG IV IV SCH ×2 (01:06→10:16)
[2023-05-04 06:18] LABS: Absolute Neutrophil Ct (ANC) 7.15 x10^3/uL (1.4-6.9); BASOPHIL % 0.3 % (0.0-0.4); Basophil (Absolute #) 0.03 x10^3/uL (0-0.4); Eosinophil % 0.2 % (0.00-5.0); Eosinophil (Absolute #) 0.02 x10^3/uL (0-0.5); Hematocrit 39.3 % (42-50); Hemoglobin 13.3 g/dL (12.5-18.0); IMMATURE GRAN # 0.03 x10^3u/L (0.00-0.03); IMMATURE GRAN % 0.3 % (0.00-0.4); Lymphocyte (Absolute #) 1.51 x10^3/uL (1.0-4.6); Lymphocytes % 15.9 % (24.0-44.0); Mean Cell Volume 92.5 fL (78-100); Mean Corpuscular Hemoglobin 31.3 pg (26-32); Mean Corpuscular Hgb Concent. 33.8 g/dL (32-36); Monocyte (Absolute #) 0.78 x10^3/uL (0.0-1.3); Monocytes % 8.2 % (0.0-12.0); Neutrophil % 75.1 % (36.0-66.0); Platelet Count 226 x10^3/uL (150-450); Red Blood Count 4.25 x10^6/uL (4.1-5.6); White Blood Count 9.5 x10^3/uL (4.0-10.5)
--- NOTE | 2023-05-04 06:30 | PCM.NOTE ---
Date and Time: 05/04/23627 Subjective Assessment: HPI: is a 48 year old male with a hx of DMII on insulin only at home, came in with c/o nausea, vomiting x 2 days. Had vomited 30 + times since then. Reports coffee ground emesis, but no bloody or black stools. Has generalized abdominal pain, anterior chest pain, and sore throat from all the vomiting. Denies diarrhea. No fever, chills, dysuria, hematuria, flank pain. CT abd shows dilated gallbladder but no SBO, pancreatitis, cholecystitis. Did show esophageal edema. Plan for GB tomorrow, surgery consult - pending recs, IVF, anti-emetics, zosyn. No nausea/vomiting since admission. Patient reported spo2 to be dipping into the 70s while sleeping, will order overnight pulse ox. 05/03: Met with patient bedside. Endorses continued diffuse abdominal pain. Nausea and vomiting have resolved. Plan for GB tomorrow, surgery consult - pending recs, IVF, anti-emetics, zosyn. No nausea/vomiting since admission. Patient reported spo2 to be dipping into the 70s while sleeping, will order overnight pulse ox. - Review of Systems Constitutional: No Symptoms Eyes: No Symptoms Ears, Nose, & Throat: No Symptoms Respiratory: No Symptoms Cardiac: No Symptoms Abdominal/Gastrointestinal: Abdominal Pain Genitourinary Symptoms: No Symptoms Musculoskeletal: No Symptoms Skin: No Symptoms Neurological: No Symptoms Psychological: No Symptoms Endocrine: No Symptoms Hematologic/Lymphatic: No Symptoms Immunological/Allergic: No Symptoms Objective Exam General Appearance: no apparent distress Neurologic Exam: alert, oriented x 3, cooperative Skin Exam: normal color Eye Exam: PERRL Ears, Nose, Throat Exam: normal ENT inspection Neck Exam: normal inspection Lymphatic Exam: adenopathy Respiratory Exam: normal breath sounds, lungs clear Cardiovascular Exam: regular rate/rhythm, normal heart sounds Gastrointestinal/Abdomen Exam: soft, tenderness (TTP x 4 quads), other (Hypoacti ve BS x 4 quads) Extremity Exam: normal inspection Back Exam: normal inspection Male Genitalia Exam: deferred Rectal Exam: deferred Objective Data Vital Signs: Vital Signs - 24 hr Temp Pulse Resp BP BP Pulse Ox 05/04/23 04:00 98.7 F 102 H 20 93/51 95 05/04/23 00:23 98 F 121 H 20 132/82 98 05/04/23 00:00 110 H 0 L 139/85 98 05/03/23 23:30 109 H 18 121/78 98 05/03/23 23:00 105 H 17 130/85 99 05/03/23 22:30 112 H 18 129/89 98 05/03/23 22:00 103 H 17 138/99 99 05/03/23 21:54 105 H 21 141/84 99 05/03/23 21:50 102 H 20 99 05/03/23 21:40 104 H 25 H 99 05/03/23 21:34 105 H 17 99 05/03/23 21:00 100 H 18 150/90 100 05/03/23 20:30 107 H 20 135/92 100 05/03/23 20:04 103 H 10 L 135/99 97 05/03/23 20:03 98.5 F 114 H 22 135/99 100 Pain Assessment - Last Documented Pain Intensity 5 Pain Scale Used 0-10 Pain Scale Intake and Output: Intake & Output 05/01/23 05/02/23 05/03/23 05/04/23 11:59 11:59 11:59 12:59 Intake Total 710 Balance 710 Weight 72.1 kg Lab Results: Lab Results-Last 24 Hours 05/03/23 05/03/23 05/03/23 Range/Units 20:22 20:22 20:22 WBC 11.0 H (4.0-10.5) x10^3/uL RBC 4.99 (4.1-5.6) x10^6/uL Hgb 15.8 (12.5-18.0) g/dL Hct 45.7 (42-50) % MCV 91.6 (78-100) fL MCH 31.7 (26-32) pg MCHC 34.6 (32-36) g/dL RDW 11.7 (11.5-14.0) % Plt Count 245 (150-450) x10^3/uL MPV 10.7 (7.5-11.0) fL Gran % 77.1 H (36.0-66.0) % Immature Gran % (Auto) 0.4 (0.00-0.4) % Nucleat RBC Rel Count 0.0 (0.00-0.1) % Eos # (Auto) 0.03 (0-0.5) x10^3/uL Immature Gran # (Auto) 0.04 H (0.00-0.03) x10^3u/L Absolute Lymphs (auto) 1.40 (1.0-4.6) x10^3/uL Absolute Monos (auto) 1.00 (0.0-1.3) x10^3/uL Absolute Nucleated RBC 0.00 (0.00-0.01) x10^3u/L Lymphocytes % 12.8 L (24.0-44.0) % Monocytes % 9.1 (0.0-12.0) % Eosinophils % 0.3 (0.00-5.0) % Basophils % 0.3 (0.0-0.4) % Absolute Granulocytes 8.48 H (1.4-6.9) x10^3/uL Basophils # 0.03 (0-0.4) x10^3/uL PT (9.4-12.5) SECONDS INR (0.8-3.0) APTT (25.1-36.5) SECONDS Sodium 139 (135-145) mmol/L Potassium 3.9 (3.5-5.1) mmol/L Chloride 98 (98-107) mmol/L Carbon Dioxide 27 (22-30) mmol/L Anion Gap 17.7 H (5-15) MEQ/L BUN 21 H (9-20) mg/dL Creatinine 1.17 (0.66-1.25) mg/dL Estimated GFR 76.9 ML/MIN Glucose 196 H (74-106) mg/dL Calcium 10.2 (8.4-10.2) mg/dL Total Bilirubin 0.90 (0.2-1.3) mg/dL AST 21 (17-59) U/L ALT 28 (0-50) U/L Alkaline Phosphatase 93 (38-126) U/L Troponin I < 0.012 (0.000-0.034) ng/mL Serum Total Protein 8.2 (6.3-8.2) g/dL Albumin 4.6 (3.5-5.0) g/dL Amylase 58 (30-110) U/L Lipase 46 (23-300) U/L Urine Color (Yellow) Urine Appearance (Clear) Urine pH (4.6-8.0) Ur Specific [place] (1.005-1.030) Urine Protein (Negative) Urine Glucose (UA) (Negative) mg/dL Urine Ketones (Negative) Urine Blood (Negative) Urine Nitrite (Negative) Urine Bilirubin (Negative) Urine Urobilinogen (0.2) mg/dL Ur Leukocyte Esterase (Negative) U Hyaline Cast (Auto) (0-2) /LPF Urine Microscopic RBC (0-5) /HPF Urine Microscopic WBC (0-5) /HPF Ur Epithelial Cells (None Seen) /HPF Urine Bacteria (None Seen) /HPF Urine Culture Reflexed (NO) 05/03/23 05/03/23 05/04/23 Range/Units 20:22 21:23 00:55 WBC (4.0-10.5) x10^3/uL RBC (4.1-5.6) x10^6/uL Hgb (12.5-18.0) g/dL Hct (42-50) % MCV (78-100) fL MCH (26-32) pg MCHC (32-36) g/dL RDW (11.5-14.0) % Plt Count (150-450) x10^3/uL MPV (7.5-11.0) fL Gran % (36.0-66.0) % Immature Gran % (Auto) (0.00-0.4) % Nucleat RBC Rel Count (0.00-0.1) % Eos # (Auto) (0-0.5) x10^3/uL Immature Gran # (Auto) (0.00-0.03) x10^3u/L Absolute Lymphs (auto) (1.0-4.6) x10^3/uL Absolute Monos (auto) (0.0-1.3) x10^3/uL Absolute Nucleated RBC (0.00-0.01) x10^3u/L Lymphocytes % (24.0-44.0) % Monocytes % (0.0-12.0) % Eosinophils % (0.00-5.0) % Basophils % (0.0-0.4) % Absolute Granulocytes (1.4-6.9) x10^3/uL Basophils # (0-0.4) x10^3/uL PT 11.3 (9.4-12.5) SECONDS INR 1.04 (0.8-3.0) APTT 23.4 L (25.1-36.5) SECONDS Sodium (135-145) mmol/L Potassium (3.5-5.1) mmol/L Chloride (98-107) mmol/L Carbon Dioxide (22-30) mmol/L Anion Gap (5-15) MEQ/L BUN (9-20) mg/dL Creatinine (0.66-1.25) mg/dL Estimated GFR ML/MIN Glucose (74-106) mg/dL Calcium (8.4-10.2) mg/dL Total Bilirubin (0.2-1.3) mg/dL AST (17-59) U/L ALT (0-50) U/L Alkaline Phosphatase (38-126) U/L Troponin I < 0.012 (0.000-0.034) ng/mL Serum Total Protein (6.3-8.2) g/dL Albumin (3.5-5.0) g/dL Amylase (30-110) U/L Lipase (23-300) U/L Urine Color Yellow (Yellow) Urine Appearance Clear (Clear) Urine pH 6.0 (4.6-8.0) Ur Specific [place] 1.025 (1.005-1.030) Urine Protein 30 (Negative) Urine Glucose (UA) 250 A (Negative) mg/dL Urine Ketones 80 A (Negative) Urine Blood Negative (Negative) Urine Nitrite Negative (Negative) Urine Bilirubin Negative (Negative) Urine Urobilinogen 1.0 A (0.2) mg/dL Ur Leukocyte Esterase Negative (Negative) U Hyaline Cast (Auto) 3-5 A (0-2) /LPF Urine Microscopic RBC 0-2 (0-5) /HPF Urine Microscopic WBC 0-2 (0-5) /HPF Ur Epithelial Cells None Seen (None Seen) /HPF Urine Bacteria None Seen (None Seen) /HPF Urine Culture Reflexed NO (NO) 05/04/23 Range/Units 05:38 WBC 9.5 (4.0-10.5) x10^3/uL RBC 4.25 (4.1-5.6) x10^6/uL Hgb 13.3 (12.5-18.0) g/dL Hct 39.3 L (42-50) % MCV 92.5 (78-100) fL MCH 31.3 (26-32) pg MCHC 33.8 (32-36) g/dL RDW 12.0 (11.5-14.0) % Plt Count 226 (150-450) x10^3/uL MPV 11.0 (7.5-11.0) fL Gran % 75.1 H (36.0-66.0) % Immature Gran % (Auto) 0.3 (0.00-0.4) % Nucleat RBC Rel Count 0.0 (0.00-0.1) % Eos # (Auto) 0.02 (0-0.5) x10^3/uL Immature Gran # (Auto) 0.03 (0.00-0.03) x10^3u/L Absolute Lymphs (auto) 1.51 (1.0-4.6) x10^3/uL Absolute Monos (auto) 0.78 (0.0-1.3) x10^3/uL Absolute Nucleated RBC 0.00 (0.00-0.01) x10^3u/L Lymphocytes % 15.9 L (24.0-44.0) % Monocytes % 8.2 (0.0-12.0) % Eosinophils % 0.2 (0.00-5.0) % Basophils % 0.3 (0.0-0.4) % Absolute Granulocytes 7.15 H (1.4-6.9) x10^3/uL Basophils # 0.03 (0-0.4) x10^3/uL PT (9.4-12.5) SECONDS INR (0.8-3.0) APTT (25.1-36.5) SECONDS Sodium (135-145) mmol/L Potassium (3.5-5.1) mmol/L Chloride (98-107) mmol/L Carbon Dioxide (22-30) mmol/L Anion Gap (5-15) MEQ/L BUN (9-20) mg/dL Creatinine (0.66-1.25) mg/dL Estimated GFR ML/MIN Glucose (74-106) mg/dL Calcium (8.4-10.2) mg/dL Total Bilirubin (0.2-1.3) mg/dL AST (17-59) U/L ALT (0-50) U/L Alkaline Phosphatase (38-126) U/L Troponin I (0.000-0.034) ng/mL Serum Total Protein (6.3-8.2) g/dL Albumin (3.5-5.0) g/dL Amylase (30-110) U/L Lipase (23-300) U/L Urine Color (Yellow) Urine Appearance (Clear) Urine pH (4.6-8.0) Ur Specific [place] (1.005-1.030) Urine Protein (Negative) Urine Glucose (UA) (Negative) mg/dL Urine Ketones (Negative) Urine Blood (Negative) Urine Nitrite (Negative) Urine Bilirubin (Negative) Urine Urobilinogen (0.2) mg/dL Ur Leukocyte Esterase (Negative) U Hyaline Cast (Auto) (0-2) /LPF Urine Microscopic RBC (0-5) /HPF Urine Microscopic WBC (0-5) /HPF Ur Epithelial Cells (None Seen) /HPF Urine Bacteria (None Seen) /HPF Urine Culture Reflexed (NO) Radiology Exams: Radiology Procedures Category Date Time Status ABDOMEN AND PELVIS W CONTRAST [CT] Stat Exams 05/03/23 20:19 Completed CHEST WITH CONTRAST [CT] Stat Exams 05/03/23 20:21 Completed GALLBLADDER [US] Routine Exams 05/05/23 08:00 Ordered Assessment/Plan (1) Intractable nausea and vomiting Current Visit: Yes Status: Acute Assessment & Plan: 05/02: Due to gallbladder pathology likely. Will get a gallbladder US. Lipase, amylase, LFTs all normal. UA + glucose, but otherwise normal. No SBO on CT. trops negative x 1 so far. Chest pain likely from repeated vomiting. CT did show esophageal edeam and again, it is likely from the repeated vomiting. 05/03: -surgery consult -Zosyn -US GB tomorrow NPO. IVF. Prn ofran Code(s): R11.2 - NAUSEA WITH VOMITING, UNSPECIFIED (2) Dilated gallbladder Current Visit: Yes Status: Acute Assessment & Plan: 05/02 Will get an US, then go from there Code(s): K82.8 - OTHER SPECIFIED DISEASES OF GALLBLADDER (3) Abdominal pain Current Visit: Yes Status: Acute Assessment & Plan: 05/02 Due to some sort of gallbladder pathology given the negative work-up for other causes and CT showing gallbladder dilatation. Prn pain med Code(s): R10.9 - UNSPECIFIED ABDOMINAL PAIN (4) Diabetes mellitus Current Visit: Yes Status: Acute Assessment & Plan: 05/02 NPO due to n/v. SSI, accucheck. Check A1C Code(s): E11.9 - TYPE 2 DIABETES MELLITUS WITHOUT COMPLICATIONS Code(s): R11.2 - NAUSEA WITH VOMITING, UNSPECIFIED (2) Dilated gallbladder Current Visit: Yes Status: Acute Code(s): K82.8 - OTHER SPECIFIED DISEASES OF GALLBLADDER (3) Diabetes mellitus Current Visit: Yes Status: Acute Code(s): E11.9 - TYPE 2 DIABETES MELLITUS WITHOUT COMPLICATIONS (4) Abdominal pain Current Visit: Yes Status: Acute Code(s): R10.9 - UNSPECIFIED ABDOMINAL PAIN
[2023-05-04 08:11] VITALS: RESP 17
[2023-05-04 08:26] LABS: ALBUMIN 3.9 g/dL (3.5-5.0); ANION GAP 15.1 MEQ/L (5-15); BILIRUBIN,TOTAL 0.7 mg/dL (0.2-1.3); Calcium 8.7 mg/dL (8.4-10.2); EST GLOMERULAR FILTRATION RATE 92.8 ML/MIN; Total Protein 6.8 g/dL (6.3-8.2)
[2023-05-04] MEDS: Hydromorphone 1 mg/ml Injection IV PRN (10:16)
--- NOTE | 2023-05-04 10:58 | PCM.NOTE ---
is a 48 year old male with a hx of DMII on insulin only at home, came in with c/o nausea, vomiting x 2 days. Had vomited 30 + times since then. Reports coffee ground emesis, but no bloody or black stools. Has generalized abdominal pain, anterior chest pain, and sore throat from all the vomiting. Denies diarrhea. No fever, chills, dysuria, hematuria, flank pain. CT abd shows dilated gallbladder but no SBO, pancreatitis, cholecystitis. Did show esophageal edema. Plan for GB tomorrow, surgery consult - pending recs, IVF, anti-emetics, zosyn. No nausea/vomiting since admission. Patient reported spo2 to be dipping into the 70s while sleeping, will order overnight pulse ox.
[2023-05-04] MEDS: PIPERACILLIN/TAZOBACTAM 3.375 GM in Sodium Chloride 100ML MINI-BAG PLUS 100 ML IV SCH (12:21)
[2023-05-04 13:30] VITALS: O2SAT 99
[2023-05-04 17:20] VITALS: BP 130/82; PULSE 85; TEMP 97.1
--- NOTE | 2023-05-04 18:01 | PCM.DS ---
Discharge Summary Date of Admission: 05/04/23 00:07 Date of Discharge: 05/04/23 Admitting Physician: RIAZ SOARES DO Consults: Consults on Case 05/04/23 10:56 Consult Surgery ROUTINE Primary Care Provider: LAINA WALTER MD Allergies Allergies codeine Allergy (Unknown, Verified 05/03/23 20:02) cortisone [Cortisone] Allergy (Unknown, Verified 05/03/23 20:02) Hospital Summary - Hospital Course Hospital Course: is a 48 year old male with a hx of DMII on insulin only at home, came in with c/o nausea, vomiting x 2 days. Had vomited 30 + times since then. Reports coffee ground emesis, but no bloody or black stools. Has generalized abdominal pain, anterior chest pain, and sore throat from all the vomiting. Denies diarrhea. No fever, chills, dysuria, hematuria, flank pain. CT abd shows dilated gallbladder but no SBO, pancreatitis, cholecystitis. Did show esophageal edema. Plan for GB tomorrow, surgery consulted - pending GB US plan was to NPO and perform EGD tomorrow. IP treatment with IVF, anti-emetics, zosyn. No nausea/vomiting since admission. Patient spoke with bottle house quality control technician requesting to leave AMA. The risks of leaving AMA were discussed with the patient, includi ng risk of harm, disability, and . The patient states awareness of these risks and still chooses to leave AMA. - Vitals & Intake/Output Vital Signs: Vital Signs Temperature 97.1 F 05/04/23 16:00 Pulse Rate 85 05/04/23 16:00 Respiratory Rate 17 05/04/23 16:00 Blood Pressure 130/82 05/04/23 16:00 O2 Sat by Pulse Oximetry 99 05/04/23 16:00 Intake & Output: Intake & Output 05/02/23 05/03/23 05/04/23 05/05/23 10:59 10:59 11:59 11:59 Intake Total 30 Output Total 450 Balance -420 Weight - Lab Result Diagrams: 05/04/23 05:38 05/04/23 05:38 Lab Results-Last 24 Hrs: Lab Results-Last 24 Hours 03/09/24 03/09/24 03/09/24 Range/Units 20:22 20:22 20:22 WBC 11.0 H (4.0-10.5) x10^3/uL RBC 4.99 (4.1-5.6) x10^6/uL Hgb 15.8 (12.5-18.0) g/dL Hct 45.7 (42-50) % MCV 91.6 (78-100) fL MCH 31.7 (26-32) pg MCHC 34.6 (32-36) g/dL RDW 11.7 (11.5-14.0) % Plt Count 245 (150-450) x10^3/uL MPV 10.7 (7.5-11.0) fL Gran % 77.1 H (36.0-66.0) % Immature Gran % (Auto) 0.4 (0.00-0.4) % Nucleat RBC Rel Count 0.0 (0.00-0.1) % Eos # (Auto) 0.03 (0-0.5) x10^3/uL Immature Gran # (Auto) 0.04 H (0.00-0.03) x10^3u/L Absolute Lymphs (auto) 1.40 (1.0-4.6) x10^3/uL Absolute Monos (auto) 1.00 (0.0-1.3) x10^3/uL Absolute Nucleated RBC 0.00 (0.00-0.01) x10^3u/L Lymphocytes % 12.8 L (24.0-44.0) % Monocytes % 9.1 (0.0-12.0) % Eosinophils % 0.3 (0.00-5.0) % Basophils % 0.3 (0.0-0.4) % Absolute Granulocytes 8.48 H (1.4-6.9) x10^3/uL Basophils # 0.03 (0-0.4) x10^3/uL PT (9.4-12.5) SECONDS INR (0.8-3.0) APTT (25.1-36.5) SECONDS Sodium 139 (135-145) mmol/L Potassium 3.9 (3.5-5.1) mmol/L Chloride 98 (98-107) mmol/L Carbon Dioxide 27 (22-30) mmol/L Anion Gap 17.7 H (5-15) MEQ/L BUN 21 H (9-20) mg/dL Creatinine 1.17 (0.66-1.25) mg/dL Estimated GFR 76.9 ML/MIN Glucose 196 H (74-106) mg/dL POC Glucometer (74 to 106) mg/dL Hemoglobin A1c (4.5-6.0) % Calcium 10.2 (8.4-10.2) mg/dL Total Bilirubin 0.90 (0.2-1.3) mg/dL AST 21 (17-59) U/L ALT 28 (0-50) U/L Alkaline Phosphatase 93 (38-126) U/L Troponin I < 0.012 (0.000-0.034) ng/mL Serum Total Protein 8.2 (6.3-8.2) g/dL Albumin 4.6 (3.5-5.0) g/dL Amylase 58 (30-110) U/L Lipase 46 (23-300) U/L Urine Color (Yellow) Urine Appearance (Clear) Urine pH (4.6-8.0) Ur Specific [place] (1.005-1.030) Urine Protein (Negative) Urine Glucose (UA) (Negative) mg/dL Urine Ketones (Negative) Urine Blood (Negative) Urine Nitrite (Negative) Urine Bilirubin (Negative) Urine Urobilinogen (0.2) mg/dL Ur Leukocyte Esterase (Negative) U Hyaline Cast (Auto) (0-2) /LPF Urine Microscopic RBC (0-5) /HPF Urine Microscopic WBC (0-5) /HPF Ur Epithelial Cells (None Seen) /HPF Urine Bacteria (None Seen) /HPF Urine Culture Reflexed (NO) 05/03/23 05/03/23 05/04/23 Range/Units 20:22 21:23 00:55 WBC (4.0-10.5) x10^3/uL RBC (4.1-5.6) x10^6/uL Hgb (12.5-18.0) g/dL Hct (42-50) % MCV (78-100) fL MCH (26-32) pg MCHC (32-36) g/dL RDW (11.5-14.0) % Plt Count (150-450) x10^3/uL MPV (7.5-11.0) fL Gran % (36.0-66.0) % Immature Gran % (Auto) (0.00-0.4) % Nucleat RBC Rel Count (0.00-0.1) % Eos # (Auto) (0-0.5) x10^3/uL Immature Gran # (Auto) (0.00-0.03) x10^3u/L Absolute Lymphs (auto) (1.0-4.6) x10^3/uL Absolute Monos (auto) (0.0-1.3) x10^3/uL Absolute Nucleated RBC (0.00-0.01) x10^3u/L Lymphocytes % (24.0-44.0) % Monocytes % (0.0-12.0) % Eosinophils % (0.00-5.0) % Basophils % (0.0-0.4) % Absolute Granulocytes (1.4-6.9) x10^3/uL Basophils # (0-0.4) x10^3/uL PT 11.3 (9.4-12.5) SECONDS INR 1.04 (0.8-3.0) APTT 23.4 L (25.1-36.5) SECONDS Sodium (135-145) mmol/L Potassium (3.5-5.1) mmol/L Chloride (98-107) mmol/L Carbon Dioxide (22-30) mmol/L Anion Gap (5-15) MEQ/L BUN (9-20) mg/dL Creatinine (0.66-1.25) mg/dL Estimated GFR ML/MIN Glucose (74-106) mg/dL POC Glucometer (74 to 106) mg/dL Hemoglobin A1c (4.5-6.0) % Calcium (8.4-10.2) mg/dL Total Bilirubin (0.2-1.3) mg/dL AST (17-59) U/L ALT (0-50) U/L Alkaline Phosphatase (38-126) U/L Troponin I < 0.012 (0.000-0.034) ng/mL Serum Total Protein (6.3-8.2) g/dL Albumin (3.5-5.0) g/dL Amylase (30-110) U/L Lipase (23-300) U/L Urine Color Yellow (Yellow) Urine Appearance Clear (Clear) Urine pH 6.0 (4.6-8.0) Ur Specific [place] 1.025 (1.005-1.030) Urine Protein 30 (Negative) Urine Glucose (UA) 250 A (Negative) mg/dL Urine Ketones 80 A (Negative) Urine Blood Negative (Negative) Urine Nitrite Negative (Negative) Urine Bilirubin Negative (Negative) Urine Urobilinogen 1.0 A (0.2) mg/dL Ur Leukocyte Esterase Negative (Negative) U Hyaline Cast (Auto) 3-5 A (0-2) /LPF Urine Microscopic RBC 0-2 (0-5) /HPF Urine Microscopic WBC 0-2 (0-5) /HPF Ur Epithelial Cells None Seen (None Seen) /HPF Urine Bacteria None Seen (None Seen) /HPF Urine Culture Reflexed NO (NO) 05/04/23 05/04/23 05/04/23 Range/Units 05:38 05:38 05:38 WBC 9.5 (4.0-10.5) x10^3/uL RBC 4.25 (4.1-5.6) x10^6/uL Hgb 13.3 (12.5-18.0) g/dL Hct 39.3 L (42-50) % MCV 92.5 (78-100) fL MCH 31.3 (26-32) pg MCHC 33.8 (32-36) g/dL RDW 12.0 (11.5-14.0) % Plt Count 226 (150-450) x10^3/uL MPV 11.0 (7.5-11.0) fL Gran % 75.1 H (36.0-66.0) % Immature Gran % (Auto) 0.3 (0.00-0.4) % Nucleat RBC Rel Count 0.0 (0.00-0.1) % Eos # (Auto) 0.02 (0-0.5) x10^3/uL Immature Gran # (Auto) 0.03 (0.00-0.03) x10^3u/L Absolute Lymphs (auto) 1.51 (1.0-4.6) x10^3/uL Absolute Monos (auto) 0.78 (0.0-1.3) x10^3/uL Absolute Nucleated RBC 0.00 (0.00-0.01) x10^3u/L Lymphocytes % 15.9 L (24.0-44.0) % Monocytes % 8.2 (0.0-12.0) % Eosinophils % 0.2 (0.00-5.0) % Basophils % 0.3 (0.0-0.4) % Absolute Granulocytes 7.15 H (1.4-6.9) x10^3/uL Basophils # 0.03 (0-0.4) x10^3/uL PT (9.4-12.5) SECONDS INR (0.8-3.0) APTT (25.1-36.5) SECONDS Sodium 139 (135-145) mmol/L Potassium 4.0 (3.5-5.1) mmol/L Chloride 104 (98-107) mmol/L Carbon Dioxide 24 (22-30) mmol/L Anion Gap 15.1 H (5-15) MEQ/L BUN 19 (9-20) mg/dL Creatinine 1.00 (0.66-1.25) mg/dL Estimated GFR 92.8 ML/MIN Glucose 190 H (74-106) mg/dL POC Glucometer (74 to 106) mg/dL Hemoglobin A1c (4.5-6.0) % Calcium 8.7 (8.4-10.2) mg/dL Total Bilirubin 0.70 (0.2-1.3) mg/dL AST 29 (17-59) U/L ALT 22 (0-50) U/L Alkaline Phosphatase 76 (38-126) U/L Troponin I < 0.012 (0.000-0.034) ng/mL Serum Total Protein 6.8 (6.3-8.2) g/dL Albumin 3.9 (3.5-5.0) g/dL Amylase (30-110) U/L Lipase (23-300) U/L Urine Color (Yellow) Urine Appearance (Clear) Urine pH (4.6-8.0) Ur Specific [place] (1.005-1.030) Urine Protein (Negative) Urine Glucose (UA) (Negative) mg/dL Urine Ketones (Negative) Urine Blood (Negative) Urine Nitrite (Negative) Urine Bilirubin (Negative) Urine Urobilinogen (0.2) mg/dL Ur Leukocyte Esterase (Negative) U Hyaline Cast (Auto) (0-2) /LPF Urine Microscopic RBC (0-5) /HPF Urine Microscopic WBC (0-5) /HPF Ur Epithelial Cells (None Seen) /HPF Urine Bacteria (None Seen) /HPF Urine Culture Reflexed (NO) 05/04/23 05/04/23 05/04/23 Range/Units 05:38 07:39 11:35 WBC (4.0-10.5) x10^3/uL RBC (4.1-5.6) x10^6/uL Hgb (12.5-18.0) g/dL Hct (42-50) % MCV (78-100) fL MCH (26-32) pg MCHC (32-36) g/dL RDW (11.5-14.0) % Plt Count (150-450) x10^3/uL MPV (7.5-11.0) fL Gran % (36.0-66.0) % Immature Gran % (Auto) (0.00-0.4) % Nucleat RBC Rel Count (0.00-0.1) % Eos # (Auto) (0-0.5) x10^3/uL Immature Gran # (Auto) (0.00-0.03) x10^3u/L Absolute Lymphs (auto) (1.0-4.6) x10^3/uL Absolute Monos (auto) (0.0-1.3) x10^3/uL Absolute Nucleated RBC (0.00-0.01) x10^3u/L Lymphocytes % (24.0-44.0) % Monocytes % (0.0-12.0) % Eosinophils % (0.00-5.0) % Basophils % (0.0-0.4) % Absolute Granulocytes (1.4-6.9) x10^3/uL Basophils # (0-0.4) x10^3/uL PT (9.4-12.5) SECONDS INR (0.8-3.0) APTT (25.1-36.5) SECONDS Sodium (135-145) mmol/L Potassium (3.5-5.1) mmol/L Chloride (98-107) mmol/L Carbon Dioxide (22-30) mmol/L Anion Gap (5-15) MEQ/L BUN (9-20) mg/dL Creatinine (0.66-1.25) mg/dL Estimated GFR ML/MIN Glucose (74-106) mg/dL POC Glucometer 177 H 166 H (74 to 106) mg/dL Hemoglobin A1c 8.33 H (4.5-6.0) % Calcium (8.4-10.2) mg/dL Total Bilirubin (0.2-1.3) mg/dL AST (17-59) U/L ALT (0-50) U/L Alkaline Phosphatase (38-126) U/L Troponin I (0.000-0.034) ng/mL Serum Total Protein (6.3-8.2) g/dL Albumin (3.5-5.0) g/dL Amylase (30-110) U/L Lipase (23-300) U/L Urine Color (Yellow) Urine Appearance (Clear) Urine pH (4.6-8.0) Ur Specific [place] (1.005-1.030) Urine Protein (Negative) Urine Glucose (UA) (Negative) mg/dL Urine Ketones (Negative) Urine Blood (Negative) Urine Nitrite (Negative) Urine Bilirubin (Negative) Urine Urobilinogen (0.2) mg/dL Ur Leukocyte Esterase (Negative) U Hyaline Cast (Auto) (0-2) /LPF Urine Microscopic RBC (0-5) /HPF Urine Microscopic WBC (0-5) /HPF Ur Epithelial Cells (None Seen) /HPF Urine Bacteria (None Seen) /HPF Urine Culture Reflexed (NO) Micro Results-Entire Visit: Accuchecks Date 05/04/23 Date 05/04/23 Date 05/04/23 Time 17:20 Time 11:41 Time 07:41 - Radiology Exams Ordered Rad Exams-Entire Visit: Radiology Procedures Category Date Time Status ABDOMEN AND PELVIS W CONTRAST [CT] Stat Exams 05/03/23 20:19 Completed CHEST WITH CONTRAST [CT] Stat Exams 05/03/23 20:21 Completed GALLBLADDER [US] Routine Exams 05/05/23 08:00 Ordered - Procedures and Test Procedures and Tests throughout Hospitalization: Therapy Orders & Screens 05/04/23 00:20 EKG REPEAT IN AM Comment: Oxygen Nasal Cannula 2 lpm Comment: Final Diagnosis/Problem List - Final Discharge Diagnosis/Problem (1) Intractable nausea and vomiting Current Visit: Yes Status: Acute Code(s): R11.2 - NAUSEA WITH VOMITING, UNSPECIFIED (2) Dilated gallbladder Current Visit: Yes Status: Acute Code(s): K82.8 - OTHER SPECIFIED DISEASES OF GALLBLADDER (3) Diabetes mellitus Current Visit: Yes Status: Acute Code(s): E11.9 - TYPE 2 DIABETES MELLITUS WITHOUT COMPLICATIONS (4) Abdominal pain Current Visit: Yes Status: Acute Code(s): R10.9 - UNSPECIFIED ABDOMINAL PAIN - Discharge Disposition: Home, Self-Care Condition: Stable Prescriptions: No Action Insulin Aspart [Novolog] 5 unit SQ TIDWM Insulin Degludec [Tresiba Flextouch U-100] 30 units SQ HS Follow up with: LAINA WALTER MD [Primary Care Provider] -
== END 2023-05-04 18:21 | disposition left against medical advice (07) ==
LOC: ED 19:59 → MED SURG 05-04 00:07
PROVIDERS: ADMIT Internal Medicine; ATTEND Internal Medicine
DX: R11.2 Nausea with vomiting, unspecified (principal); K82.8 Other specified diseases of gallbladder; E11.9 Type 2 diabetes mellitus without complications; R10.9 Unspecified abdominal pain; K22.89 Other specified disease of esophagus; Z79.899 Other long term (current) drug therapy; Z20.828 Contact with and (suspected) exposure to other viral communicable diseases
CPT/HCPCS: 36000; 36415; 71260; 74177; 80053; 81001; 82150; 82947; 83036; 83690; 84484; 85025; 85610; 85730; 93005; 96360; 96374; 96375; 99285; J1170; J2270; J2405

== ENCOUNTER 2024-04-14 21:00 | Emergency (ER) | payer BC, MEDICAID ==
--- NOTE | 2024-04-14 22:34 | ERPHSYRPT ---
- History of Present Illness Historian: patient Exam Limitations: no limitations Timing/Duration: day(s) (3) Quality: burning Abdominal Pain Onset Location: epigastric Pain Radiation: epigastric (With radiation up, cranially into the patient's back of the throat) Severity of Pain-Max: moderate Severity of Pain-Current: moderate Modifying Factors: Improves With: nothing Associated Symptoms: heartburn, nausea, vomiting (Hematemesis today), No chest pain, No shortness of breath Previous symptoms: same symptoms as today, no recent treatment Hx Tetanus, Diphtheria Vaccination/Date Given: Yes Hx Influenza Vaccination/Date Given: No Hx Pneumococcal Vaccination/Date Given: No <UMER WHALEN - Last Filed: 04/15/24 07:25> <ELENO WELDON - Last Filed: 04/15/24 08:52> - History of Present Illness Time Seen by Provider: 04/14/24 22:34 Physician History: This is a thin 49-year-old white male patient of Dr. Mariano who arrives by private vehicle with complaints of constipation for 5 days with upper epigastric abdominal pain that he describes as burning which radiates cranially into the back of his throat for 3 days. He has a very sore throat. Patient states he is having severe reflux symptoms. Today, he began having coffee-ground emesis. Approximately 1 year ago patient underwent an EGD which showed esophageal polyps but he never followed up and the office never called him regarding arranging for biopsy of these polyps. Patient does not have chest pain. Patient is not short of breath. Patient has a history of insulin-dependent diabetes and gastroesophageal reflux disease. (UMER WHALEN) Allergies/Adverse Reactions: codeine Allergy (Unknown, Verified 05/03/23 20:02) cortisone [Cortisone] Allergy (Unknown, Verified 05/03/23 20:02) Home Medications: Insulin Aspart [Novolog] 5 unit SQ TIDWM 08/04/19 [History] Insulin Degludec [Tresiba Flextouch U-100] 30 units SQ HS 05/03/23 [History] PANTOPRAZOLE 40 mg Tablet [Protonix 40MG Tablet] 1 tab PO BID 04/14/24 [History] Travel Risk - International Travel Have you traveled outside of the country in past 3 weeks: No - Emerging Infectious Disease Are you exhibiting symptoms associated with any current EIDs: No Symptoms: Abdominal Pain, Vomitting, Other (Please Comment) (Your throat) <UMER WHALEN - Last Filed: 04/15/24 07:25> - Review of Systems Constitutional: No Symptoms Eyes: No Symptoms Ears, Nose, & Throat: Throat Pain Respiratory: No Symptoms Cardiac: No Symptoms Abdominal/Gastrointestinal: Abdominal Pain, Vomiting, Constipation, Appetite Changes Genitourinary Symptoms: No Symptoms Musculoskeletal: No Symptoms Skin: No Symptoms Neurological: No Symptoms Psychological: No Symptoms Endocrine: No Symptoms Hematologic/Lymphatic: No Symptoms Immunological/Allergic: No Symptoms All Other Systems: Reviewed and Negative <UMER WHALEN - Last Filed: 04/15/24 07:25> - Past Medical History Pertinent Past Medical History: Yes Neurological History: No Pertinent History ENT History: No Pertinent History Cardiac History: No Pertinent History Respiratory History: No Pertinent History Endocrine Medical History: Diabetes Type II Musculoskeletal History: No Pertinent History GI Medical History: Hernia History: No Pertinent History Psycho-Social History: No Pertinent History Male Reproductive Disorders: No Pertinent History - Past Surgical History Past Surgical History: Yes Neuro Surgical History: No Pertinent History Cardiac: No Pertinent History Respiratory: No Pertinent History Gastrointestinal: Hernia Repair Genitourinary: No Pertinent History Musculoskeletal: Orthopedic Surgery Male Surgical History: No Pertinent History Other Surgical History: TONSILS REMOVED, back surgery L4-5 Significant Family History: no pertinent family hx - Social History Smoking Status: Never smoker Exposure to second hand smoke: No Drug Use: none - Social Determinants of Health Will the patient participate in the screening: Yes Do you worry about a steady place to live?: No In the past 12 months,have you had to go without utilities?: No Transportation Issues: No Has anyone in your support network made you feel unsafe?: No Have you or anyone in your house had to go w/o enough food: No <UMER WHALEN - Last Filed: 04/15/24 07:25> - Physical Exam General Appearance: mild distress, alert, anxiety, thin Eye Exam: PERRL/EOMI, eyes nml inspection Ears, Nose, Throat Exam: normal ENT inspection, moist mucous membranes Neck Exam: normal inspection, non-tender, supple, full range of motion Respiratory Exam: normal breath sounds, lungs clear, airway intact, No chest tenderness, No respiratory distress Cardiovascular Exam: tachycardia Gastrointestinal/Abdomen Exam: soft, normal bowel sounds, tenderness (Epigastrium to palpation), guarding (Epigastrium to palpation), No rebound Rectal Exam: not done Back Exam: normal inspection, normal range of motion, No CVA tenderness, No vertebral tenderness Extremity Exam: normal inspection, normal range of motion, pelvis stable Neurologic Exam: alert, oriented x 3, cooperative, bellows tester II-XII nml as tested, nml cerebellar function, nml station & gait, sensation nml Skin Exam: normal color, warm, dry Lymphatic Exam: No adenopathy SpO2 Interpretation: normal O2 Delivery: Room Air <UMER WHALEN - Last Filed: 04/15/24 07:25> - Nursing Vital Signs Nursing Vital Signs: Initial Vital Signs Pulse Rate 106 H 04/14/24 22:30 Respiratory Rate 5 L 04/14/24 22:30 Blood Pressure 145/93 04/14/24 22:30 O2 Sat by Pulse Oximetry 98 04/14/24 22:30 Pain Scale Pain Intensity 0 - Course Nursing assessment & vital signs reviewed: Yes EKG Interpreted by Me: RATE ([id number]), Sinus Tach, NORMAL AXIS, NORMAL INTERVALS, NORMAL QRS, Other (No acute ischemia. QTc 501) <UMER WHALEN - Last Filed: 04/15/24 07:25> Ordered Tests: Active Orders 24 hr Category Date Time Status IV Insertion STAT Care 04/14/24 23:34 Active ABDOMEN AND PELVIS W/0 CONTRAS [CT] Stat Exams 04/14/24 23:34 Completed CHEST WITHOUT CONTRAST [CT] Stat Exams 04/14/24 23:35 Completed CHEST WITHOUT CONTRAST [CT] Stat Exams 04/15/24 03:24 Completed AMYLASE Stat Lab 04/14/24 22:30 Completed BMP Stat Lab 04/15/24 08:34 Ordered CBC W DIFF Stat Lab 04/14/24 22:30 Completed CMP Stat Lab 04/14/24 22:30 Completed CMP Stat Lab 04/15/24 06:01 Completed LIPASE Stat Lab 04/14/24 22:30 Completed MAG [MAGNESIUM] Stat Lab 04/15/24 08:34 Ordered MONO SCREEN Stat Lab 04/15/24 00:00 Completed POCT GLUCOSE Stat Lab 04/14/24 22:25 Completed POCT GLUCOSE Stat Lab 04/15/24 08:18 Completed VENOUS BLOOD GAS Stat Lab 04/15/24 08:21 Completed Medication Summary Generic Name Dose Route Start Last Admin Trade Name Robin PRN Reason Stop Dose Admin INSULIN REGULAR IN 0.9 % NACL 100 unit in 100 mls @ 6.36 mls/hr 04/15/24 08:19 04/15/24 08:40 Myxredlin 100 Unit/100 Ml Bag IV 05/15/24 08:18 0.1 unit/kg/hr .[id number] PRN 6.36 mls/hr HYPERGLYCEMIA Administration Protocol 0.1 UNIT/KG/HR Pantoprazole Sodium 80 mg/ 500 mls @ 50 mls/hr 04/15/24 08:30 04/15/24 08:40 Sodium Chloride IV 05/15/24 08:29 50 mls/hr .Q10H CANDIE 50 mls/hr Administration Discontinued Medications Generic Name Dose Route Start Last Admin Trade Name Robin PRN Reason Stop Dose Admin Al Hydrox/Mg Hydrox/Simethicone Confirm 04/15/24 00:11 Mag Hydrox/Al Hydrox/Simeth 30 Ml Udcup Administered 04/15/24 00:12 Dose 30 ml .ROUTE .STK-MED ONE Hydromorphone HCl 1 mg 04/15/24 00:05 04/15/24 00:12 Hydromorphone 1 Mg/1ml Inj IV 04/15/24 00:06 1 mg STAT ONE Administration Hydromorphone HCl Confirm 04/15/24 00:10 Hydromorphone 1 Mg/1ml Inj Administered 04/15/24 00:11 Dose 1 mg .ROUTE .STK-MED ONE Sodium Chloride 1,000 mls @ 999 mls/hr 04/14/24 23:34 04/15/24 07:50 Sodium Chloride 0.9% 1000 Ml IV 04/15/24 00:34 Infused .Q1H1M STA Infusion Sodium Chloride Confirm 04/15/24 00:00 Sodium Chloride 0.9% 1000 Ml Administered 04/15/24 00:01 Dose 1,000 mls @ ud .ROUTE .STK-MED ONE Lactated Ringer's 1,000 mls @ 999 mls/hr 04/15/24 03:23 04/15/24 07:50 Lactated Ringers IV 04/15/24 04:23 Infused .Q1H1M ONE Infusion Sodium Chloride 1,000 mls @ 999 mls/hr 04/15/24 06:34 04/15/24 08:27 Sodium Chloride 0.9% 1000 Ml IV 04/15/24 07:34 Infused .Q1H1M STA Infusion Sodium Chloride Confirm 04/15/24 06:57 Sodium Chloride 0.9% 1000 Ml Administered 04/15/24 06:58 Dose 1,000 mls @ ud .ROUTE .STK-MED ONE INSULIN REGULAR IN 0.9 % NACL Confirm 04/15/24 08:27 Myxredlin 100 Unit/100 Ml Bag Administered 04/15/24 08:28 Dose 100 unit in 100 mls @ ud IV .STK-MED ONE Insulin Human Regular 4 unit 04/15/24 04:48 04/15/24 05:47 Insulin Regular, Human 1 Unit IV 04/15/24 04:49 4 unit STAT ONE Administration Insulin Human Regular Confirm 04/15/24 05:46 Insulin Regular, Human 1 Unit Administered 04/15/24 05:47 Dose 1 unit .ROUTE .STK-MED ONE Lidocaine HCl Confirm 04/15/24 00:11 Lidocaine Hcl 2% Viscous 15 Ml Udcup Administered 04/15/24 00:12 Dose 15 ml .ROUTE .STK-MED ONE Magnesium Hydroxide 45 ml 04/15/24 00:05 04/15/24 00:13 Mag Hydrx/Alum Hyd/Simeth/Lido 45 Ml Bottle PO 04/15/24 00:06 45 ml STAT ONE Administration Ondansetron HCl 4 mg 04/14/24 23:34 04/15/24 00:06 Ondansetron Hcl 4 Mg/2 Ml Vial IV 04/14/24 23:35 4 mg STAT ONE Administration Ondansetron HCl Confirm 04/15/24 00:00 Ondansetron Hcl 4 Mg/2 Ml Vial Administered 04/15/24 00:01 Dose 4 mg .ROUTE .STK-MED ONE Pantoprazole Sodium 40 mg 04/15/24 00:05 04/15/24 00:13 Pantoprazole 40 Mg Vial IV 04/15/24 00:06 40 mg STAT ONE Administration Pantoprazole Sodium Confirm 04/15/24 00:10 Pantoprazole 40 Mg Vial Administered 04/15/24 00:11 Dose 40 mg IV .STK-MED ONE Lab/Rad Data: Laboratory Result Diagrams 04/14/24 22:30 04/15/24 06:01 Laboratory Results 04/15/24 04/15/24 04/15/24 Range/Units 08:21 08:18 06:01 WBC (4.23-9.07) x10^3/uL RBC (4.63-6.08) x10^6/uL Hgb (13.7-17.5) g/dL Hct (40.1-51.0) % MCV (79.0-92.2) fL MCH (25.7-32.2) pg MCHC (32.3-36.5) g/dL RDW (11.6-14.4) % Plt Count (163-337) x10^3/uL MPV (9.4-12.4) fL Gran % (34.0-67.9) % Immature Gran % (Auto) (0.001-0.429) % Nucleat RBC Rel Count (0.00-0.2) % Eos # (Auto) (0.04-0.54) x10^3/uL Immature Gran # (Auto) (0.001-0.031) x10^3u/L Absolute Lymphs (auto) (1.32-3.57) x10^3/uL Absolute Monos (auto) (0.30-0.82) x10^3/uL Absolute Nucleated RBC (0.00-0.012) x10^3u/L Lymphocytes % (21.8-53.1) % Monocytes % (5.3-12.2) % Eosinophils % (0.8-7.0) % Basophils % (0.2-1.2) % Absolute Granulocytes (1.78-5.38) x10^3/uL Basophils # (0.01-0.08) x10^3/uL pO2/FiO2 Ratio 21.0 % VBG pH 7.16 L* (7.32-7.42) VBG pCO2 at Pat Temp 43 (42-55) mm/Hg VBG pO2 at Pat Temp 42 H (25-40) mm/Hg VBG HCO3 15.3 L* (22-28) meq/L VBG O2 Sat (Ren) 72.0 L (95-100) VBG Base Excess -13.1 L (-2.0-2.0) VBG Hemoglobin 17.7 VBG Carboxyhemoglobin 3.1 (0.0-6.9) % T HGB POC Potassium 9.4 H* (3.5-5.1) Sodium 137 (135-145) mmol/L Potassium 4.5 (3.5-5.1) mmol/L Chloride 103 (98-107) mmol/L Carbon Dioxide 10 L* (22-30) mmol/L Anion Gap 28.0 H (5-15) MEQ/L BUN 19 (9-20) mg/dL Creatinine 0.93 (0.66-1.25) mg/dL Estimated GFR 100.7 ML/MIN Glucose 362 H (74-106) mg/dL POC Glucometer 256 H (74 to 106) mg/dL Calcium 8.3 L (8.4-10.2) mg/dL Total Bilirubin 0.60 (0.2-1.3) mg/dL AST 20 (17-59) U/L ALT 19 (0-50) U/L Alkaline Phosphatase 108 (38-126) U/L Serum Total Protein 7.0 (6.3-8.2) g/dL Albumin 4.2 (3.5-5.0) g/dL Amylase (30-110) U/L Lipase (23-300) U/L Urine Color (Yellow) Urine Appearance (Clear) Urine pH (4.6-8.0) Ur Specific [place] (1.005-1.030) Urine Protein (Negative) Urine Glucose (UA) (Negative) mg/dL Urine Ketones (Negative) Urine Blood (Negative) Urine Nitrite (Negative) Urine Bilirubin (Negative) Urine Urobilinogen (0.2) mg/dL Ur Leukocyte Esterase (Negative) U Hyaline Cast (Auto) (0-2) /LPF Urine Microscopic RBC (0-5) /HPF Urine Microscopic WBC (0-5) /HPF Ur Epithelial Cells (None Seen) /HPF Urine Bacteria (None Seen) /HPF Urine Culture Reflexed (NO) Monoscreen (NEGATIVE) 04/15/24 04/14/24 04/14/24 Range/Units 00:00 22:30 22:30 WBC 9.1 H (4.23-9.07) x10^3/uL RBC 5.32 (4.63-6.08) x10^6/uL Hgb 16.9 (13.7-17.5) g/dL Hct 48.7 (40.1-51.0) % MCV 91.5 (79.0-92.2) fL MCH 31.8 (25.7-32.2) pg MCHC 34.7 (32.3-36.5) g/dL RDW 12.2 (11.6-14.4) % Plt Count 290 (163-337) x10^3/uL MPV 11.1 (9.4-12.4) fL Gran % 78.8 H (34.0-67.9) % Immature Gran % (Auto) 0.2 (0.001-0.429) % Nucleat RBC Rel Count 0.0 (0.00-0.2) % Eos # (Auto) 0 L (0.04-0.54) x10^3/uL Immature Gran # (Auto) 0.02 (0.001-0.031) x10^3u/L Absolute Lymphs (auto) 1.28 L (1.32-3.57) x10^3/uL Absolute Monos (auto) 0.57 (0.30-0.82) x10^3/uL Absolute Nucleated RBC 0.00 (0.00-0.012) x10^3u/L Lymphocytes % 14.1 L (21.8-53.1) % Monocytes % 6.3 (5.3-12.2) % Eosinophils % 0.0 L (0.8-7.0) % Basophils % 0.6 (0.2-1.2) % Absolute Granulocytes 7.17 H (1.78-5.38) x10^3/uL Basophils # 0.05 (0.01-0.08) x10^3/uL pO2/FiO2 Ratio % VBG pH (7.32-7.42) VBG pCO2 at Pat Temp (42-55) mm/Hg VBG pO2 at Pat Temp (25-40) mm/Hg VBG HCO3 (22-28) meq/L VBG O2 Sat (Ren) (95-100) VBG Base Excess (-2.0-2.0) VBG Hemoglobin VBG Carboxyhemoglobin (0.0-6.9) % T HGB POC Potassium (3.5-5.1) Sodium 137 (135-145) mmol/L Potassium 4.5 (3.5-5.1) mmol/L Chloride 97 L (98-107) mmol/L Carbon Dioxide 12 L* (22-30) mmol/L Anion Gap 31.9 H (5-15) MEQ/L BUN 21 H (9-20) mg/dL Creatinine 1.11 (0.66-1.25) mg/dL Estimated GFR 81.4 ML/MIN Glucose 308 H (74-106) mg/dL POC Glucometer (74 to 106) mg/dL Calcium 9.2 (8.4-10.2) mg/dL Total Bilirubin 0.90 (0.2-1.3) mg/dL AST 25 (17-59) U/L ALT 25 (0-50) U/L Alkaline Phosphatase 140 H (38-126) U/L Serum Total Protein 8.8 H (6.3-8.2) g/dL Albumin 5.2 H (3.5-5.0) g/dL Amylase 66 (30-110) U/L Lipase 54 (23-300) U/L Urine Color (Yellow) Urine Appearance (Clear) Urine pH (4.6-8.0) Ur Specific [place] (1.005-1.030) Urine Protein (Negative) Urine Glucose (UA) (Negative) mg/dL Urine Ketones (Negative) Urine Blood (Negative) Urine Nitrite (Negative) Urine Bilirubin (Negative) Urine Urobilinogen (0.2) mg/dL Ur Leukocyte Esterase (Negative) U Hyaline Cast (Auto) (0-2) /LPF Urine Microscopic RBC (0-5) /HPF Urine Microscopic WBC (0-5) /HPF Ur Epithelial Cells (None Seen) /HPF Urine Bacteria (None Seen) /HPF Urine Culture Reflexed (NO) Monoscreen NEGATIVE (NEGATIVE) 04/14/24 04/14/24 Range/Units 22:25 04:34 WBC (4.23-9.07) x10^3/uL RBC (4.63-6.08) x10^6/uL Hgb (13.7-17.5) g/dL Hct (40.1-51.0) % MCV (79.0-92.2) fL MCH (25.7-32.2) pg MCHC (32.3-36.5) g/dL RDW (11.6-14.4) % Plt Count (163-337) x10^3/uL MPV (9.4-12.4) fL Gran % (34.0-67.9) % Immature Gran % (Auto) (0.001-0.429) % Nucleat RBC Rel Count (0.00-0.2) % Eos # (Auto) (0.04-0.54) x10^3/uL Immature Gran # (Auto) (0.001-0.031) x10^3u/L Absolute Lymphs (auto) (1.32-3.57) x10^3/uL Absolute Monos (auto) (0.30-0.82) x10^3/uL Absolute Nucleated RBC (0.00-0.012) x10^3u/L Lymphocytes % (21.8-53.1) % Monocytes % (5.3-12.2) % Eosinophils % (0.8-7.0) % Basophils % (0.2-1.2) % Absolute Granulocytes (1.78-5.38) x10^3/uL Basophils # (0.01-0.08) x10^3/uL pO2/FiO2 Ratio % VBG pH (7.32-7.42) VBG pCO2 at Pat Temp (42-55) mm/Hg VBG pO2 at Pat Temp (25-40) mm/Hg VBG HCO3 (22-28) meq/L VBG O2 Sat (Ren) (95-100) VBG Base Excess (-2.0-2.0) VBG Hemoglobin VBG Carboxyhemoglobin (0.0-6.9) % T HGB POC Potassium (3.5-5.1) Sodium (135-145) mmol/L Potassium (3.5-5.1) mmol/L Chloride (98-107) mmol/L Carbon Dioxide (22-30) mmol/L Anion Gap (5-15) MEQ/L BUN (9-20) mg/dL Creatinine (0.66-1.25) mg/dL Estimated GFR ML/MIN Glucose (74-106) mg/dL POC Glucometer 277 H (74 to 106) mg/dL Calcium (8.4-10.2) mg/dL Total Bilirubin (0.2-1.3) mg/dL AST (17-59) U/L ALT (0-50) U/L Alkaline Phosphatase (38-126) U/L Serum Total Protein (6.3-8.2) g/dL Albumin (3.5-5.0) g/dL Amylase (30-110) U/L Lipase (23-300) U/L Urine Color Yellow (Yellow) Urine Appearance Clear (Clear) Urine pH 5.0 (4.6-8.0) Ur Specific [place] >=1.030 A (1.005-1.030) Urine Protein Trace A (Negative) Urine Glucose (UA) >=1000 A (Negative) mg/dL Urine Ketones >=160 A (Negative) Urine Blood Negative (Negative) Urine Nitrite Negative (Negative) Urine Bilirubin Negative (Negative) Urine Urobilinogen 0.2 (0.2) mg/dL Ur Leukocyte Esterase Negative (Negative) U Hyaline Cast (Auto) 3-5 A (0-2) /LPF Urine Microscopic RBC 0-2 (0-5) /HPF Urine Microscopic WBC 0-2 (0-5) /HPF Ur Epithelial Cells None Seen (None Seen) /HPF Urine Bacteria None Seen (None Seen) /HPF Urine Culture Reflexed NO (NO) Monoscreen (NEGATIVE) - Progress Progress: improved Counseled pt/family regarding: lab results, diagnosis, rad results <UMER WHALEN - Last Filed: 04/15/24 07:25> - Progress Progress: re-examined Discussed with Dr.: Other (Dr. Gleason pulmonary critical care[facility] <ELENO WELDON - Last Filed: 04/15/24 08:52> - Progress Progress Note: 04/15/24 00:18 My medical decision making and the assignment of at least moderate complexity of this patient's medical issue today is based on review of the patient's past medical history, review the patient's medication list, reviewed patient drug allergy list, history present illness and physical findings on examination. The workup in this patient includes placement of a intravenous line, infusion of normal saline solution, infusion of Zofran, Protonix, Dilaudid, GI cocktail, CBC, CMP, amylase, lipase, viral swabs, strep test, monotest, CT scan of the chest without contrast and CT scan of the abdomen and pelvis without contrast. Differential diagnosis includes but is not limited to esophageal perforation, esophagitis, peptic ulcer disease, gastroesophageal reflux, viral illness, strep pharyngitis 04/15/24 03:19 I interpreted the patient's laboratory data results. Based on the laboratory data results that have returned so far the patient's CO2 is 12 (low). Patient also has a significantly elevated anion gap of 31. Patient also has hyperglycemia. The urinalysis is pending The CT scan of the chest without contrast was compared to CT scan of chest with contrast dated 05/03/2023. This study was interpreted by the radiologist. Interpretation states collapsed esophagus likely wall thickening at the mid and distal esophagus with adjacent fat stranding. Prominent paraesophageal lymph nodes present. There is minimal right pleural thickening and trace right effusion. Recommend CT scan of the chest with contrast and endoscopy 04/15/24 03:21 CT scan of the abdomen pelvis without contrast was interpreted by the radiologist and I reviewed the impression. Impression states compared to similar study dated 05/03/2023 there is atrophic right kidney. There is mild concentric thickening noted involving the lower esophagus. Gallbladder is grossly distended without gallstones. The urinary bladder is grossly distended with normal wall thickening. Outpatient ultrasound of the urinary bladder is advised. Patient refused strep test and viral swabs. 04/15/24 04:20 I reexamined the patient and spoke with both the patient and the patient's spous e. Patient states that he is much more comfortable now. The spouse states that he has not been eating or drinking well in the last several days. He has not been sleeping well for the last several days as well. She stated that she appreciated the GI cocktail and pain medication because he is now more comfortable. 04/15/24 06:[address] scan of the chest with oral contrast was interpreted by the radiologist and I reviewed the impression. There is circumferential diffuse wall thickening seen involving the mid to distal esophagus reaching a maximum thickness of 7.6 mm. This study is showing relative interval regression when compared to study dated 05/03/2023. There is no mention of esophageal perforation. 04/15/24 07:[address] Anthony, our telehospitalist on at this time. I reviewed the patient history, presenting complaint, physical findings on examination and workup results. She declines admission of this patient. This patient has not only DKA but coffee-ground emesis with concerning, acute findings on the CT scan of his esophagus. As an outpatient in April 2023 he did not follow-up and she is concerned that he may also need urgent EGD. She prefers that the patient be transferred to another facility that has GI available with surgical backup. (UMER SORIA) 04/15/24 08:47 Patient is checked out to me at shift change from Dr. Whalen with pending transfer. The patient is resting comfortably during my evaluation, no abdominal tenderness. Not in any distress. Stable vitals. Patient pH is 7.16 check now with bicarb of 10 and a gap of 28, glucose fingerstick is in 250s, positive ketones in the urine, he is started on low-dose insulin drip. Also started him on Protonix drip. CT chest abdomen pelvis finding consistent with diffuse circumferential thickening of esophagus especially the lower half and some distended gallbladder without calculi. Patient does not have a positive Gray sign. I have discussed with Dr. Gleason pulmonary critical care and Dr. Castro hospitalist at [facility], reviewed history, workup and agreed with transfer. I have discussed with patient and family in detail about results of workup, current management and plan of transfer which they understand and agree. (ELENO WELDON) Medical Desision Making - Independent Historian Additional History obtained from: Spouse - Diagnostic Testing Diagnostic test were ordered, analyzed, and reviewed by me: Yes Radiological Interpretation: Reviewed by me, Teleradiologist Report <UMER WHALEN - Last Filed: 04/15/24 07:25> - Discussion of managment Care discussed with:: specialist (Dr. Gleason pulmonary critical care/Dr. Castro hospitalist) Reviewed:: Test results, Need for additional workup Agreed on:: Treatment plan Will see patient: in hospital - Risk of complications The pt has a mod risk of morbidity or mortality based on: Need for prescription drug management The pt has a high risk of morbidity or mortality based on: Decision regarding hospitilization or escalation of hosp level of care <ELENO WELDON - Last Filed: 04/15/24 08:52> <UMER WHALEN - Last Filed: 04/15/24 07:25> - Departure Departure Disposition: Transfer Critical Care Time: Yes Critical Care Time(excluding separately billable procedures): Critical 30-74 mins <ELENO WELDON - Last Filed: 04/15/24 08:52> - Departure Clinical Impression: Esophagitis with gastritis, DKA (diabetic ketoacidosis) Condition: Stable Referrals: LAINA WALTER MD [Primary Care Provider] - Follow up/PCP as directed
[2024-04-14 23:02] VITALS: TEMP 98.4
[2024-04-14 23:41] LABS: Absolute Neutrophil Ct (ANC) 7.17 x10^3/uL (1.78-5.38); BASOPHIL % 0.6 % (0.2-1.2); Basophil (Absolute #) 0.05 x10^3/uL (0.01-0.08); Eosinophil (Absolute #) 0 x10^3/uL (0.04-0.54); Hematocrit 48.7 % (40.1-51.0); Hemoglobin 16.9 g/dL (13.7-17.5); IMMATURE GRAN # 0.02 x10^3u/L (0.001-0.031); IMMATURE GRAN % 0.2 % (0.001-0.429); Lymphocyte (Absolute #) 1.28 x10^3/uL (1.32-3.57); Lymphocytes % 14.1 % (21.8-53.1); Mean Cell Volume 91.5 fL (79.0-92.2); Mean Corpuscular Hemoglobin 31.8 pg (25.7-32.2); Mean Corpuscular Hgb Concent. 34.7 g/dL (32.3-36.5); Mean Platelet Volume 11.1 fL (9.4-12.4); Monocyte (Absolute #) 0.57 x10^3/uL (0.30-0.82); Monocytes % 6.3 % (5.3-12.2); Neutrophil % 78.8 % (34.0-67.9); Platelet Count 290 x10^3/uL (163-337); Red Blood Count 5.32 x10^6/uL (4.63-6.08); Red Cell Distribution Width 12.2 % (11.6-14.4); White Blood Count 9.1 x10^3/uL (4.23-9.07)
[2024-04-14 23:47] LABS: ALBUMIN 5.2 g/dL (3.5-5.0); ANION GAP 31.9 MEQ/L (5-15); BILIRUBIN,TOTAL 0.9 mg/dL (0.2-1.3); Calcium 9.2 mg/dL (8.4-10.2); Creatinine 1 1.11 mg/dL (0.66-1.25); EST GLOMERULAR FILTRATION RATE 81.4 ML/MIN; Potassium 4.5 mmol/L (3.5-5.1); Total Protein 8.8 g/dL (6.3-8.2)
[2024-04-15] MEDS ORDERED: Zofran 4 MG/2 ML VIAL ONE
[2024-04-15] MEDS: Sodium Chloride 0.9% 1000 ML 1,000 ML IV STA ×2 (00:04→06:59)
[2024-04-15] MEDS: Zofran 4 MG/2 ML VIAL IV ONE (00:06)
[2024-04-15] MEDS ORDERED: PROTONIX 40 MG IV IV ONE (00:10)
[2024-04-15] MEDS ORDERED: Hydromorphone 1 mg/ml Injection ONE (00:10)
[2024-04-15] MEDS ORDERED: MAALOX ES 30 ML UNIT DOSE ONE (00:11)
[2024-04-15] MEDS ORDERED: XYLOCAINE VISCOUS 2% 15 ML CUP ONE (00:11)
[2024-04-15] MEDS: Hydromorphone 1 mg/ml Injection IV ONE (00:12)
[2024-04-15] MEDS: GI COCKTAIL 45 ML (Maalox/Lidocaine) PO ONE (00:13)
[2024-04-15] MEDS: PROTONIX 40 MG IV IV ONE (00:13)
--- NOTE | 2024-04-15 02:26 | XRAY ---
CLINICAL HISTORY: ABD pain COMPARISON: 03 may 2023 TECHNIQUE: Contiguous axial images were obtained from the level of the diaphragm to the pubic symphysis without intravenous or oral contrast. Coronal and sagittal reconstructions were likewise performed and indicated to increase the sensitivity for detecting clinically relevant pathology. CT scan was performed according to ALARA (as low as reasonable achievable). FINDINGS: The visualized lung bases are clear. Mild concentric thickening is noted involving lower esophagus-stable. Evaluation of the abdominal and pelvic visceral organs is limited without intravenous contrast. The unenhanced liver, spleen, pancreas, and adrenal glands are grossly unremarkable. The gallbladder is grossly distended without obvious intraluminal radio-opaque calculi.. Atrophic right kidney is seen measuring approximately 8 cm CC. There is a 4 mm nonobstructing stone within the lower pole of the right kidney. The left kidneys are normal in size and attenuation without obvious calcification. There is no hydronephrosis or perinephric stranding. The ureters are normal in caliber. No adenopathy or fluid collections are seen. No evidence of focal or diffuse bowel wall thickening or evidence of bowel obstruction is seen. No evidence of inflamed appendix. The aorta is normal in caliber. The urinary bladder is grossly distended with normal wall thickness. Pelvic viscera are grossly unremarkable. No aggressive appearing osseous lesions are identified. IMPRESSION: 1. Atrophic right kidney with small non-obstructing lower calyceal calculus-stable. 2. Mild concentric thickening is noted involving lower esophagus-stable. 3. The gallbladder is grossly distended without obvious intraluminal radio-opaque calculi..-stable. 4. The urinary bladder is grossly distended with normal wall thickness. New finding. Advised ultrasound correlation. 5. No other new interval abnormality since prior study. Electronically Signed by: Christophe Covarrubias MD. (04/15/2024 02:23:21 EST)
--- NOTE | 2024-04-15 02:30 | XRAY ---
CLINICAL HISTORY: Dysphagia; reflux COMPARISON: 05/03/2023, CT Chest with contrast TECHNIQUE: Contiguous axial CT images of the chest were acquired without administration of intravenous contrast. Coronal and sagittal reconstructions were obtained. One of the following dose reduction techniques were utilized for this exam: Automated exposure control, adjustment of the mA and/or kV according to patient size, use of iterative reconstruction. FINDINGS: Lungs: A calcified granuloma is identified in left upper lobe measuring 9 x 7 mm. Multiple scattered noncalcified nodules are right in both lungs, largest nodule in right lower lobe measures 3.8 x 3.1 mm. The rest of them are up to 2 mm in size. Gravitational changes are identified at both lung bases. No evidence of consolidation, collapse. No evidence of interstitial lung disease or emphysema. Minimal pleural thickening/trace effusion was identified on the right side. No evidence of pleural effusion on left side. Mediastinum: The mediastinum is normal in size and contour. No mediastinal mass or abnormal lymphadenopathy. The heart size is within normal limits. The esophagus is collapsed, however, there is likely wall thickening at the mid and distal esophagus, with adjacent fat stranding. A few prominent paraesophageal lymph nodes seen largest is measuring 7 mm Hilar Structures: The hilar structures appear normal without enlargement or abnormality. Trachea and Main Bronchi: The trachea and main bronchi are patent without evidence of obstruction or abnormality. Chest Wall: The chest wall is unremarkable with no evidence of soft tissue or bony abnormalities. Upper Abdomen: Please refer to CT abdomen report Bones: Degenerative changes are identified in visualized spine with osteophytes Visualized osseous structures are normal, no evidence of fracture or lytic/sclerotic lesions. IMPRESSION: 1. Collapsed esophagus, however, there is likely wall thickening at the mid and distal esophagus, with adjacent fat stranding, and few prominent paraesophageal lymph nodes. No gross interval changes seen, however, this is a noncontrast study. CT scan with oral contrast/endoscopy is advised. 2. Calcified granuloma in left upper lobe. Stable 3. Multiple bilateral scattered pulmonary nodules, stable. 4. Minimal pleural thickening/trace effusion identified on the right side, stable. 5. No other significant interval changes seen. Electronically Signed by: Hellen Venegas MD. (04/15/2024 02:27:21 EST)
[2024-04-15] MEDS: Lactated Ringers 1,000 ML IV ONE (03:35)
[2024-04-15 04:45] LABS: Appearance Clear (Clear); Bacteria None Seen /HPF (None Seen); Bilirubin Negative (Negative); Blood Negative (Negative); Epithelial Cells None Seen /HPF (None Seen); Glucose, Urine >=1000 mg/dL (Negative); Ketones >=160 (Negative); Leukocyte Esterase Negative (Negative); Nitrite Negative (Negative); Protein,Urine Dip Trace (Negative); RBC 0-2 /HPF (0-5); Specific Gravity >=1.030 (1.005-1.030); Urobilinogen 0.2 mg/dL (0.2); WBC 0-2 /HPF (0-5)
[2024-04-15] MEDS ORDERED: HUMULIN R ONE (05:46)
--- NOTE | 2024-04-15 05:46 | XRAY ---
CLINICAL HISTORY: Wall thickening mid?distal esophagu COMPARISON: prior study dated 04/14/2024. TECHNIQUE: Contiguous axial CT images of the chest were acquired without administration of intravenous contrast, 10cc of gastrografin mixed with juice. Coronal and sagittal reconstructions were obtained. One of the following dose reduction techniques were utilized for this exam: Automated exposure control, adjustment of the mA and/or kV according to patient size, use of iterative reconstruction. FINDINGS: Circumferential diffuse wall thickening is seen involving mid to distal esophagus, reaching a maximum single wall thickness of 7.6mm. Lungs: Left upper lobe calcified nodule measuring 7.6x9mm Multiple scattered noncalcified nodules are right in both lungs, largest nodule in right lower lobe measures 3.8 x 3.1 mm. The rest of them are up to 2 mm in size. The lung parenchyma is clear with no evidence of consolidation, collapse, or focal lesions. No pulmonary nodules or masses are identified. No evidence of interstitial lung disease or emphysema. No pleural effusion or pleural thickening. Mediastinum: The mediastinum is normal in size and contour. No mediastinal mass or abnormal lymphadenopathy. The heart size is within normal limits. Suggesting small hiatal hernia Hilar Structures: The hilar structures appear normal without enlargement or abnormality. Trachea and Main Bronchi: The trachea and main bronchi are patent without evidence of obstruction or abnormality. Chest Wall: The chest wall is unremarkable with no evidence of soft tissue or bony abnormalities. Upper Abdomen: Please refer to the dedicated exam. Bones: Visualized osseous structures are normal, no evidence of fracture or lytic/sclerotic lesions. IMPRESSION: Circumferential diffuse wall thickening is seen involving the mid to distal esophagus, reaching a maximum single wall thickness of 7.6mm, showing relative interval regression compared to the prior study, which could be due to esophageal distention. advised for clinical correlation. Electronically Signed by: Hellen Venegas MD. (04/15/2024 05:43:01 EST)
[2024-04-15] MEDS: HUMULIN R IV ONE (05:47)
[2024-04-15 06:15] LABS: ALBUMIN 4.2 g/dL (3.5-5.0); BILIRUBIN,TOTAL 0.6 mg/dL (0.2-1.3); Calcium 8.3 mg/dL (8.4-10.2); Creatinine 1 0.93 mg/dL (0.66-1.25); EST GLOMERULAR FILTRATION RATE 100.7 ML/MIN; Potassium 4.5 mmol/L (3.5-5.1)
[2024-04-15] MEDS ORDERED: Sodium Chloride 0.9% 1000 ML 1,000 ML ONE ×2 (06:57)
[2024-04-15] MEDS ORDERED: MYXREDLIN 100 UNIT/100 ML BAG 100 UNIT/100 ML PLAST..BAG IV ONE (08:27)
[2024-04-15 08:29] LABS: VBG BASE EXCESS -13.1 (-2.0-2.0); VBG CARBOXYHEMOGLOBIN 3.1 % T HGB (0.0-6.9); VBG HCO3- 15.3 meq/L (22-28); VBG HEMOGLOBIN 17.7
[2024-04-15 08:30] LABS: VBG pH 7.16 (7.32-7.42)
[2024-04-15 08:31] LABS: VBG POTASSIUM 9.4 (3.5-5.1)
[2024-04-15] MEDS: PROTONIX 40 MG IV*** 80 MG in Sodium Chloride 0.9% 500 ML 500 ML IV SCH (08:40)
[2024-04-15] MEDS: MYXREDLIN 100 UNIT/100 ML BAG 100 UNIT/100 ML PLAST..BAG IV PRN (08:40)
[2024-04-15 08:52] VITALS: O2SAT 98
[2024-04-15 09:39] LABS: ANION GAP 27.3 MEQ/L (5-15); Calcium 8.1 mg/dL (8.4-10.2); Creatinine 1 0.92 mg/dL (0.66-1.25); MAGNESIUM 2.3 mg/dL (1.6-2.3); Potassium 4.3 mmol/L (3.5-5.1)
[2024-04-15] MEDS: Sodium Bicarbonate 50 MEQ/50 ML VIAL IV STA (10:57)
[2024-04-15] MEDS ORDERED: Dextrose 5% -0.45 NaCl 1000 ML 1,000 ML IV ONE (10:57)
[2024-04-15] MEDS ORDERED: Sodium Bicarbonate 50 MEQ/50 ML VIAL ONE (10:57)
[2024-04-15] MEDS: Dextrose 5% -0.45 NaCl 1000 ML 1,000 ML IV SCH (10:58)
[2024-04-15 12:07] VITALS: BP 100/63; PULSE 110; RESP 15
== END 2024-04-15 12:50 | disposition short-term general hospital (02) ==
LOC: ED 21:00
DX: K20.90 Esophagitis, unspecified without bleeding (principal); K29.70 Gastritis, unspecified, without bleeding; E11.10 Type 2 diabetes mellitus with ketoacidosis without coma; R10.13 Epigastric pain; K59.00 Constipation, unspecified; R11.2 Nausea with vomiting, unspecified; Z79.4 Long term (current) use of insulin; Z79.899 Other long term (current) drug therapy
CPT/HCPCS: 36415; 71250; 74176; 80048; 80053; 81001; 82150; 82805; 82947; 83690; 83735; 83880; 85025; 86308; 96361; 96365; 96366; 96374; 96375; 96376; 99285; 99291; J1171; J1815; J2405; A9270-GY; Q9963